=== PATIENT | female | born 1955 | race Caucasian/White ===

== ENCOUNTER → 2019-03-25 | Outpatient (CLI) | payer MEDICARE, BC ==
[~2019-03-25] MED LIST: AMOXICILLIN875 MG PO; ARTHROTEC EC 71 EACH; ASMANEX220 MCG; CALCIUM 600 +1 EAC8; CITALOPRAM HBR40 MG; COLACE100 M1; COQ10 SG 100 S1 EACH; CYMBALTA30 MG; ESTRACE42.5 GM; FLEX-A-MIN; METRONIDAZOLE59 ML; NEURONTIN300 MG; PANTOPRAZOLE SO40 MG PO; SPIRIVA18 MCG; TRAZODONE HCL50 MG; VITAMIN B COMP1 EAC1; VITAMIN D3400 UNI1; VYVANSE50 MG; WOMEN'S 50+ DA1 EACH
--- NOTE | 2019-03-25 11:53 | Diagnostic Imaging Report ---
TECHNIQUE: Magnetic resonance imaging of the LEFT KNEE was performed WITHOUT injected contrast. HISTORY: TEAR OF LATERAL MEDIAL MENISCUS , lateral and medial pain, fall 1990, pain when walking, within the, surgery 1990 "scrape bone fragments" COMPARISON: None available. FINDINGS: LIGAMENTS AND TENDONS: ACL: Intact PCL: Intact Collateral ligaments: Intact Iliotibial band: Unremarkable Popliteal tendon: Intact Extensor mechanism: Intact JOINT: Menisci: Medial: Intrasubstance degeneration of the posterior horn, without a discrete surfacing tear. Lateral: Contour irregularity and marked attenuation of the posterior root. Mild free margin attenuation and fraying of the body with peripheral extrusion of the remaining body. Articular Cartilage: Medial Compartment: Intermediate grade erosion of the weightbearing cartilage. Lateral Compartment: Low-grade erosion of the weightbearing cartilage with central full-thickness fissuring at the lateral tibial plateau. Patellofemoral Compartment: Diffuse high-grade to full-thickness patellar erosions, most notably the lateral facet. Full-thickness erosions of the lateral trochlea. Joint Fluid: The amount of fluid within the joint is within physiologic limits. A multilobulated and multiloculated Rebolledo's cyst, in greatest dimensions measuring up to 2.6 cm (AP) x 2.3 cm (ML) x 7.8 cm (CC). BONES: No focal or infiltrative bone marrow replacing abnormality. No acute fracture. SOFT TISSUES: Edema within the adipose tissue interposed between the proximal patellar tendon lateral femoral condyle. IMPRESSION: 1. 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 2. Postsurgical changes versus degenerative tearing of the lateral meniscus. 3. Findings which can be seen in the setting of patellar tendon lateral femoral condyle friction syndrome. 4. Rebolledo's cyst. Signed by: Dr. Yobany Nunez D.O., M.M.M. on 03/25/2019 11:50 AM
== END ==
LOC: MRI 10:16
PROVIDERS: ATTEND Specialist
DX: S83.262A Peripheral tear of lateral meniscus, current injury, left knee, initial encounter (principal); S83.222A Peripheral tear of medial meniscus, current injury, left knee, initial encounter

== ENCOUNTER → 2019-07-01 | Day surgery (SDC) | payer MEDICARE, BC ==
[2019-06-29 12:54] LABS: BASOPHILS % 0.2 % (0.0-1.0); HEMOGLOBIN 12.2 g/dL (12.0-16.0); LYMPHOCYTES # (AUTO) 2.5 (1.0-3.2); LYMPHOCYTES % 29.5 % (18.0-39.1); MEAN CORPUSCULAR HEMOGLOBIN 30.6 pg (28-32); MEAN CORPUSCULAR HGB CONC 32.1 g/dL (31-35); MEAN CORPUSCULAR VOLUME 95.2 fL (81-99); MONOCYTES # (AUTO) 0.8 (0.2-0.8); MONOCYTES % 8.8 % (4.4-11.3); NEUTROPHILS # (AUTO) 5.2 (2.1-6.9); NEUTROPHILS % 60.7 % (38.7-80.0); PLATELET COUNT 219 x10e3/uL (140-360); RED BLOOD COUNT 3.99 x10e6/uL (3.6-5.1); RED CELL DISTRIBUTION WIDTH 14.5 % (11.7-14.4)
--- NOTE | 2019-06-29 13:14 | Diagnostic Imaging Report ---
EXAMINATION: CHEST 2 VIEWS INDICATION: Pre-operative COMPARISON: None FINDINGS: LINES/TUBES:None LUNGS:The lungs are well-inflated. No focal consolidation or pulmonary edema. PLEURA:No pleural effusion or pneumothorax. MEDIASTINUM:The cardiomediastinal silhouette appears normal in size and shape. BONES/SOFT TISSUES:No acute osseous injury. ABDOMEN:No free air under the diaphragm. IMPRESSION: No focal pneumonia or pulmonary edema. Signed by: Mary Villegas MD on 06/29/2019 1:11 PM
[~2019-07-01] MED LIST changes: +ATORVASTATIN CA20 MG PO; +AUGMENTIN 875-1 EACH PO; +BUPIVACAINE 0.5%/EPI 30 ML SDV INJ ONE; +CEFAZOLIN SOD 1 GM/NS 50ML 100 ML IV ONE; +CLONIDINE HCL0.1 M1 PO; +COMBIVENT RESPIM4 GM IH; +DEXAMETHASONE SOD PHOS INJ 4 MG/ML VIAL ONE; +DYMISTA NASAL S23 GM INH; +FAMOTIDINE40 MG PEG; +FASENRA30 MG/1 ML SC; +FENTANYL CITRATE/PF 100MCG/2 ML INJ ONE; +IPRATROPIU0.2 MG/1 M NEB; +KETOROLAC TROMETHAMINE 30 MG/ML VIAL ONE; +LIDOCAINE HCL 2% LOCAL INJ 5 ML SDV VIAL INJ ONE; +LOSARTAN POTASS25 MG PO; +MIDAZOLAM HCL 2 MG/2 ML VIAL ONE; +MONTELUKAST SOD10 MG PO; +ONDANSETRON HCL INJ 2MG/ML 2ML 2 MG/ML VIAL ONE; +PROAIR HFA INH8.5 GM INH; +PROPOFOL IV EMULSION 10 MG/ML 20 ML VIAL ONE; +SEVOFLURANE INHAL SOLN 250 ML PEN BTL ONE; +SYMBICORT 16010.2 GM INH
[2019-07-01 10:20] VITALS: BP 123/74
--- NOTE | 2019-07-02 23:41 | Operative Report ---
DATE OF PROCEDURE: 07/01/2019 SURGEON: Neel Muiñz MD PREOPERATIVE DIAGNOSES: Left lateral meniscus tear and left knee degenerative joint disease of the knee. POSTOPERATIVE DIAGNOSES: Left lateral meniscus tear and left knee degenerative joint disease of the knee. OPERATIONS AND PROCEDURES PERFORMED: The patient underwent a left knee examination under anesthesia, left knee arthroscopy, left knee partial lateral meniscectomy, left knee chondroplasty of the patella, the trochlear groove, the medial femoral condyle, the medial tubercular groove, the lateral femoral condyle and lateral tibial plateau. SALES FLOOR MANAGER: SANDOR John ANESTHESIA: General endotracheal intubation anesthesia. IV FLUIDS: Per anesthesia record. BRIEF DESCRIPTION OF THE PATIENT'S OPERATIVE PROCEDURE: Ms. Mariano was taken to the operating room, placed in supine position on the operating table. Following induction of general anesthesia as well as endotracheal intubation, the patient's left lower extremity was examined under anesthesia. She was found to have a mild effusion within the knee joint, but otherwise ligamentously stable knee. The patient's lower extremity was prepped and draped in standard surgical fashion. A two-port technique used to provide this patient's arthroscopic evaluation of the knee joint. Examination of suprapatellar pouch and medial and lateral gutters found no evidence of loose bodies. There was however evidence of chondromalacia of the patella and trochlear surfaces. The scope was advanced in the medial compartment. Examination of the medial compartment demonstrated chondromalacia of the articulating surfaces. There was no evidence of a meniscus tear. A chondroplasty of the medial femoral condyle and medial tibial plateau were performed at this time. The scope was advanced to the intercondylar notch and the anterior cruciate ligament was identified and found to be intact. Scope was advanced to lateral compartment. Examination of lateral compartment demonstrated a tear of the posterior horn of the lateral meniscus. There was chondromalacia of the articulating surfaces. A combination of biting forceps and motorized shaver used to resect the torn portion of meniscus. Chondroplasties of the lateral femoral condyle and lateral tibial plateau were performed at this time. Scope was then advanced in the suprapatellar pouch and chondroplasties of the patella and trochlea performed. The knee was deflated with sterile normal saline. The portal sites were closed using 4-0 nylon suture. The portal sites as well as knee itself were injected with 0.5% Marcaine with epinephrine. Sterile dressings were applied. The patient was awakened to the postanesthesia care unit in stable condition. Ely Dacosta acted as first front ventilator for this case and was necessary for both prepping and draping the patient, as well as the position of the leg during surgery and the closure of the wounds to allow this case to be successful. MD ASPEN Sifuentes/FREDDY /[id number]
== END | disposition home or self-care (01) ==
LOC: OR 05:54
PROVIDERS: ATTEND Specialist
DX: S83.262A Peripheral tear of lateral meniscus, current injury, left knee, initial encounter (principal); M17.12 Unilateral primary osteoarthritis, left knee; M22.42 Chondromalacia patellae, left knee; G47.33 Obstructive sleep apnea (adult) (pediatric); J44.9 Chronic obstructive pulmonary disease, unspecified; I10 Essential (primary) hypertension; E78.5 Hyperlipidemia, unspecified; K21.9 Gastro-esophageal reflux disease without esophagitis; F41.9 Anxiety disorder, unspecified; F32.9 Major depressive disorder, single episode, unspecified; X58.XXXA Exposure to other specified factors, initial encounter; Z68.35 Body mass index [BMI] 35.0-35.9, adult; Z82.61 Family history of arthritis
CPT/HCPCS: 29881; 36415; 71046; 85025; 93005; J0690; J1100; J1885; J2001; J2250; J2405; J2704; J3010

== ENCOUNTER 2019-08-14 07:58 | Outpatient (RCR) | payer MEDICARE, BC ==
[~2019-08-14 07:58] MED LIST changes: -BUPIVACAINE 0.5%/EPI 30 ML SDV INJ ONE; -CEFAZOLIN SOD 1 GM/NS 50ML 100 ML IV ONE; -DEXAMETHASONE SOD PHOS INJ 4 MG/ML VIAL ONE; -FENTANYL CITRATE/PF 100MCG/2 ML INJ ONE; -KETOROLAC TROMETHAMINE 30 MG/ML VIAL ONE; -LIDOCAINE HCL 2% LOCAL INJ 5 ML SDV VIAL INJ ONE; -MIDAZOLAM HCL 2 MG/2 ML VIAL ONE; -ONDANSETRON HCL INJ 2MG/ML 2ML 2 MG/ML VIAL ONE; -PROPOFOL IV EMULSION 10 MG/ML 20 ML VIAL ONE; -SEVOFLURANE INHAL SOLN 250 ML PEN BTL ONE
== END 2019-09-01 ==
LOC: PT 07:58
PROVIDERS: ATTEND Specialist
DX: S93.601A Unspecified sprain of right foot, initial encounter (principal); M62.81 Muscle weakness (generalized); M25.561 Pain in right knee; M25.571 Pain in right ankle and joints of right foot; R26.9 Unspecified abnormalities of gait and mobility

== ENCOUNTER 2019-10-30 23:01 | Observation (INO) | payer MEDICARE, BC, OTHER ==
[~2019-10-30] VITALS: Ht 172.7 cm; Wt 110.2 kg
[~2019-10-30 23:01] MED LIST changes: -BUPIVACAINE HCL 0.5% INJ 30 ML VIAL INJ ONE; -CEFAZOLIN SOD 1 GM/NS 50ML 100 ML IV ONE; -CYCLOBENZAPRINE10 MG PO; -DEXAMETHASONE SOD PHOS INJ 4 MG/ML VIAL ONE; -ETOMIDATE 2 MG/ML 10 ML INJ IV ONE; -FENTANYL CITRATE/PF 100MCG/2 ML INJ ONE; -HYDROCODONE/APAP 5MG-325MG TAB ONE; -HYDROMORPHONE 1MG/1ML INJ ONE; -Ibuprofen PO; -KETOROLAC TROMETHAMINE 30 MG/ML VIAL ONE; -LABETALOL HCL 20 ML ONE; -LIDOCAINE HCL 2% LOCAL INJ 5 ML SDV VIAL INJ ONE; -NEOSTIGMINE 1 MG/ML 10ML VIAL ONE; -ONDANSETRON HCL INJ 2MG/ML 2ML 2 MG/ML VIAL ONE; -SEVOFLURANE INHAL SOLN 250 ML PEN BTL ONE
--- OUTSIDE RECORDS SUMMARY | 2019-10-30 23:05 | XMS REPORT | Clinical Summary ---
Author Author [facility] Organization [facility] Address Unknown Phone Unavailable Care Team Providers Care Policyholder Information Clerk Name Role Phone Tenisha Anders MD PCP Allergies Comments Active Allergy Reactions Severity Noted Date No Known Drug Allergies 03/23/2016 Medications End Date Status Medication Sig Dispensed Refills Start Date Active BACILLUS COAGULANS Probiotic 0 (PROBIOTIC, B. COAGULANS, ORAL) Active omega 2-xjv-lvw-fish oil Take by oral 0 183.3 mg-75 mg -91.6 route. mg-306 mg capsule Active ipratropium (ATROVENT) ipratropium 0 0.06 % nasal spray bromide 0.06 % nasal spray Active gabapentin (NEURONTIN) 4-10 capsules 0 300 MG capsule daily prn Active docusate sodium (COLACE) Take 1 0 100 MG capsule capsule every day by oral route. Active cranberry extract 200 mg Ellura 200 mg 0 capsule capsule (36 mg PAC) capsule Active coenzyme Q10 100 mg CoQ-10 100 mg 0 capsule capsule Active calcium carbonate-vitamin Calcium 600 + 0 D3 (CALCIUM 600 + D,3,) D(3) 600 mg(1,500mg) -200 unit per tablet Active vit B mcqp-N-UJ-iron-vit Vitamins B 0 E (VITAMINS B COMPLEX) Complex 500 mg-400 mcg- 18 mg iron tablet Active ibuprofen (ADVIL,MOTRIN) TK 1 T PO QID 0 02/02 600 MG tablet 6 Active budesonide-formoterol Inhale 2 0 (SYMBICORT) 160-4.5 puffs 2 (two) mcg/actuation inhaler times a day. Active azelastine-fluticasone 1 spray by 0 (DYMISTA) 137-50 Each Nare mcg/spray route 2 (two) spray,non-aerosol times a day. Active sodium chloride USE BID WITH 0 (HYPER-LEYDI) 7 % solution ALBUTEROL 6 for nebulization CONC. IN NEBULIZER Active citalopram (CeleXA) 40 MG TK 1 T PO 30 tablet 3 tabletIndications: Other ONCE D 6 depression Active DULoxetine (CYMBALTA) 30 TK ONE C PO 30 capsule 3 1 MG capsuleIndications: QAM 6 Other depression Active clonIDINE (CATAPRES) 0.1 Take 0.1 mg 0 MG tablet by mouth nightly. Active albuterol sulfate (PROAIR Inhale 180 0 RESPICLICK) 90 mcg every 4 mcg/actuation aerosol (four) hours. powdr breath activated Active albuterol (ACCUNEB) 2.5 U 1 VIAL IN 12 mg /3 mL (0.083 %) NEB BID PRF 7 nebulizer solution SOB Active atorvastatin (LIPITOR) 20 TAKE 1 TABLET 90 tablet 4 MG tabletIndications: DAILY 9 Mixed hyperlipidemia Active diclofenac-misoprostol TAKE 1 TABLET 180 tablet 4 1 (ARTHROTEC 75) 75-200 TWICE A DAY 9 mg-mcg EC tabletIndications: Primary osteoarthritis involving multiple joints Active pantoprazole (PROTONIX) TAKE 1 TABLET 90 tablet 4 40 MG EC tablet DAILY 9 Active famotidine (PEPCID) 40 MG Daily 0 tablet Active tiotropium bromide Inhale. 0 (SPIRIVA RESPIMAT INHL) Active losartan (COZAAR) 50 MG TAKE 1 TABLET 90 tablet 3 tablet BY MOUTH 0 EVERY DAY 07/29/2019 Discontinued ranitidine (ZANTAC) 300 ranitidine 0 MG tablet 300 mg tablet 04/08/2019 Discontinued ygqkd-q-[id number] Take by oral 0 (BEANO) 150 unit tablet route. 07/29/2019 Discontinued tiotropium (SPIRIVA WITH Spiriva with 0 HANDIHALER) 18 mcg per HandiHaler 18 inhalation capsule mcg and inhalation capsules 04/08/2019 Discontinued fluticasone (CUTIVATE) REILLY TO FACE 2 01 0.05 % cream FOR SEBORRHEA 7 QD TO BID 07/29/2019 Discontinued montelukast (SINGULAIR) TK 1 T PO QD 12 10 mg tablet HS 8 04/08/2019 Discontinued acetylcysteine (NAC) 600 Take 600 mg 0 mg capsule by mouth daily. 10/12/2019 Discontinued losartan (COZAAR) 50 MG Take 1 tablet 90 tablet 3 tablet (50 mg total) 8 by mouth daily. 03/12/2019 Discontinued (Reorder) atorvastatin (LIPITOR) 20 TAKE 1 TABLET 90 tablet 3 MG tabletIndications: DAILY 8 Mixed hyperlipidemia 03/18/2019 Discontinued (Reorder) diclofenac-misoprostol TAKE 1 TABLET 180 tablet 3 1 (ARTHROTEC 75) 75-200 TWICE A DAY 8 mg-mcg EC tabletIndications: Primary osteoarthritis involving multiple joints 11/12/2018 Discontinued (Reorder) pantoprazole (PROTONIX) Take 1 tablet 90 tablet 1 40 MG EC tablet (40 mg total) 8 by mouth daily for 90 days. 11/23/2018 Discontinued (Reorder) losartan (COZAAR) 50 MG TAKE 1 90 tablet 0 tabletIndications: TABLET(50 MG) 9 Essential hypertension BY MOUTH DAILY 04/30/2019 Discontinued (Reorder) pantoprazole (PROTONIX) TAKE 1 TABLET 90 tablet 1 40 MG EC tablet DAILY 9 02/17/2019 Discontinued (Reorder) losartan (COZAAR) 50 MG TAKE 1 90 tablet 0 tabletIndications: TABLET(50 MG) 9 Essential hypertension BY MOUTH DAILY 04/08/2019 Discontinued losartan (COZAAR) 50 MG TAKE 1 TABLET 90 tablet 0 tabletIndications: BY MOUTH ONCE 9 Essential hypertension DAILY 07/29/2019 Discontinued predniSONE (DELTASONE) 20 TK 2 TS PO D 0 03/04/201 mg tablet FOR 3 DAYS 9 07/14/2019 Discontinued losartan (COZAAR) 50 MG TAKE 1 TABLET 90 tablet 0 tabletIndications: BY MOUTH ONCE 9 Essential hypertension DAILY 07/29/2019 Discontinued losartan (COZAAR) 50 MG TAKE 1 TABLET 90 tablet 0 tabletIndications: BY MOUTH ONCE 0 Essential hypertension DAILY 09/25/2019 amoxicillin-pot Take 1 tablet 14 tablet 0 09/18/19 2 clavulanate (Augmentin) by mouth 2 0 875-125 mg per (two) times a tabletIndications: COPD day for 7 exacerbation (HCC) days. Active Problems Problem Noted Date Atrophic vaginitis 04/08/2019 Anxiety 04/20/2016 Asthma 04/20/2016 Depressive disorder 04/20/2016 Gastroesophageal reflux disease 04/20/2016 Hyperlipidemia 04/20/2016 Seborrheic eczema 03/23/2016 Menopausal and postmenopausal disorder 03/23/2016 Ingrown toenail 03/23/2016 Hypertension 03/23/2016 Hyperlipidemia 03/23/2016 Gastroesophageal reflux disease 03/23/2016 Elevated blood pressure 03/23/2016 Abnormal blood chemistry level 03/23/2016 Depression 03/23/2016 Attention deficit hyperactivity disorder (ADHD) 03/04 Primary osteoarthritis involving multiple joints Mild intermittent asthma without complication 2015 Encounters Care Team Description Date Type Specialty Tenisha Anders MD 10/29/2019 Telephone Access Tenisha Anders MD Preop examination (Primary Dx) 10/21/2019 Office Visit Internal Medicine 10/21/2019 Travel Tenisha Anders MD 10/12/2019 Refill Internal Medicine Thomas Duke MD COPD exacerbation (HCC) (Primary Dx) 09/28/2019 Telemedicine Family Medicine Imtiaz Taylor MD 09/25/2019 Telephone Lab Thomas Duke MD Chronic obstructive pulmonary disease wi th (acute) exacerbation (HCC) (Primary Dx); Other general symptoms and signs 09/18/2019 Lab Lab Thomas Duke MD COPD exacerbation (HCC) (Primary Dx); Suspected Covid-19 Virus Infection 09/18/2019 Telemedicine Family Medicine 09/17/2019 Travel Tenisha Anders MD Fever, unspecified fever cause (Primary Dx) 08/06/2019 Office Visit Internal Medicine Lorie Wilde MA 08/05/2019 Telephone Internal Medicine Tenisha Anders MD Fever, unspecified (Primary Dx) 07/29/2019 Lab Lab Tenisha Anders MD Fever, unspecified fever cause 07/29/2019 Office Visit Internal Medicine Tenisha Anders MD Fever, unspecified fever cause 07/29/2019 Hospital Radiology Encounter Tenisha Anders MD Essential hypertension 07/14/2019 Refill Internal Medicine Lorie Wilde MA Encounter for screening mammogram for br east cancer 06/18/2019 Orders Only Internal Medicine Tenisha Anders MD Essential hypertension 05/14/2019 Refill Internal Medicine Tenisha Anders MD 04/30/2019 Refill Internal Medicine Aracely Boone MD Solitary pulmonary nodule 04/10/2019 Hospital Radiology Encounter Tenisha Anders MD Encounter for routine adult physical exa m with abnormal findings; Encounter for screening mammogram for breast cancer; Osteopenia, unspecified location 04/08/2019 Office Visit Internal Medicine Aracely Boone MD Solitary pulmonary nodule (Primary Dx) 04/04/2019 Transcribe Access Orders Tenisha Anders MD Primary osteoarthritis involving multipl e joints 03/18/2019 Refill Internal Medicine Tenisha Anders MD Mixed hyperlipidemia 03/12/2019 Refill Internal Medicine Tenisha Anders MD Essential hypertension 02/17/2019 Refill Internal Medicine Tenisha Anders MD Essential hypertension 11/23/2018 Refill Internal Medicine Tenisha Anders MD 11/12/2018 Refill Family Medicine after 10/29/2018 Immunizations Name Administration Dates Next Due FLUZONE HIGH-DOSE PF 04/08/2019 FLUZONE QUAD PF 04/08/2018, 03/27/2017, Influenza (IM) 03/24/2014 Preservative Free Influenza Trivalent 03/17/2015, 02/27/2013 Influenza, Unspecified 03/03/2017, 03/03/2016 Pneumococcal Conjugate 03/03/2015 13-Valent Pneumococcal 02/27/2013 Polysaccharide Family History Medical History Relation Name Comments Colon cancer Brother Colon cancer Father Colon cancer Sister Relation Name Status Comments Brother Father Sister Social History Date Tobacco Use Types Packs/Day Years Used Never Smoker Smokeless Tobacco: Never Used Drinks/Week oz/Week Comments Alcohol Use No Sex Assigned at Date Recorded Female 09/18/2019 8:59 AM CDT Industry Job Start Date Occupation Not on file Not on file Not on file Travel End Travel History Travel Start No recent travel history available. Date Recorded COVID-19 Exposure Response 10/21/2019 10:00 AM CDT In the last month, have you been in contact with No / Unsure someone who was confirmed or suspected to have Coronavirus / COVID-19? Last Filed Vital Signs Reading Time Taken Comments Vital Sign 133/84 10/21/2019 10:08 AM CDT Blood Pressure 72 10/21/2019 10:08 AM CDT Pulse 36.8 C (98.3 F) 10/21/2019 10:08 AM CDT Temperature - - Respiratory Rate 97% 10/21/2019 10:08 AM CDT Oxygen Saturation - - Inhaled Oxygen Concentration 109 kg (240 lb) 10/21/2019 10:08 AM CDT Weight 172.7 cm (5' 8") 10/21/2019 10:08 AM CDT Height 36.49 10/21/2019 10:08 AM CDT Body Mass Index Plan of Treatment Care Team Description Date Type Specialty Visus, Tenisha Camarillo MD [address] [place] [address] 04/11/2020 Office Visit Internal Medicine Health Maintenance Due Date Last Done Comments 65+ PNEUMOCOCCAL VACCINE 2018 03/17/2015, (2 of 2 - PPSV23) 03/03/2015, 02/27/2013 INFLUENZA VACCINE 01/02/2020 04/08/2019, 04/08/2018, 03/27/2017, Additional history exists SHINGLES VACCINES (#1) 04/08/2020 Postponed from 2003 (Insurance / Financial) BREAST CANCER SCREENING 06/18/2021 06/18/2019, 04/08/2019, 05/07/2016 COLONOSCOPY SCREENING 05/15/2025 05/15/2015 Procedures Comments Procedure Name Priority Date/Time Associated Diag nosis ECG 12-LEAD Routine 10/21/2019 Preop examinati on 10:11 AM CDT COVID BIOREF (NCOVB) Routine 09/18/2019 Chronic o bstructive 1:33 PM CDT pulmonary disease with (acute) exacerbation (HCC) Other general symptoms and signs HC COMPLETE BLD COUNT Routine 07/29/2019 Fever, u nspecified W/AUTO DIFF 2:50 PM [employer] [employer] RESPIRATORY PATHOGEN Routine 07/29/2019 Fever, un specified PANEL 2:50 PM [employer] XR CHEST 2 VW Routine 07/29/2019 Fever, unspecif ied fever 2:14 PM [employer] cause POCT INFLUENZA A/B Routine 07/29/2019 Fever, unsp ecified fever 1:05 PM [employer] cause CT CHEST WO CONTRAST Routine 04/10/2019 Solitary pulmonary nodule 12:14 PM [employer] [employer] THYROID STIMULATING Routine 04/08/2019 Encounter for routine HORMONE 10:06 AM [employer] adult physical exam with abnormal findings LIPID PANEL Routine 04/08/2019 Encounter for r outine 10:06 AM [employer] adult physical exam with abnormal findings COMPREHENSIVE METABOLIC Routine 04/08/[address] for routine PANEL 10:06 AM [employer] adult physical exam with abnormal findings CBC WITH PLATELET AND Routine 04/08/2019 Encounte r for routine DIFFERENTIAL 10:06 AM [employer] adult physical exam with abnormal findings after 10/29/2018 Results * ECG 12 lead (10/21/2019 10:11 AM CDT) Ventricular 70 [facility] rate Atrial rate 70 [facility] LA interval 166 [facility] QRSD interval 78 [facility] QT interval 408 [facility] QTC interval 440 [facility] P axis 1 70 [facility] QRS axis 1 67 [facility] T wave axis 57 [facility] EKG impression Normal sinus rhythm-Normal [facility] ECG-No previous ECGs available- Specimen Narrative Performed At This result has an attachment that is n ot available. Performing Organization Address City/State/[facility] Ph one Number [facility] [address] [place] [address] * COVID BioRef (NCOVB) (09/18/2019 1:33 PM CDT) Pathologist [facility] COVID BioRef Not Detected Not Detected Continuity Control (NCOVB) Comment: LAB Source Nasopharyngeal Swab Testing performed at [facility] [address] [place] [id number] NOTE: Please consider re-collection of a new specimen, if clinically indicated. NOTE: The COVID-19 assay has been cleared by the U.S. Food and Drug Administration under the Emergency Use Authorization (EUA). [facility] is designated as a high complexity laboratory by the Clinical Laboratory Improvement Amendments of 1988(CLIA) and is qualified to perform this test. ASSAY INFORMATION: Real Time RT-PCR Specimen Serum Performing Organization Address City/[facility] Ph one Number [facility] DEPARTMENT OF [address] [place] [address] PATHOLOGY AND GENOMIC MEDICINE [facility] [address] [place], [place] [id number] * Respiratory pathogen panel (07/29/2019 2:50 PM MANAGER [employer]OO[employer]) Pathologist [facility] Respiratory Positive for Coronavirus HKU1 [place] pathogen panel [facility] Negative for all other HOSPITAL pathogens tested: Negative for Adenovirus Negative for Coronavirus NL63 Negative for Coronavirus 229E Negative for Coronavirus OC43 Negative for Human Metapneumovirus Negative for Rhinovirus/Enterovirus Negative for Influenza A Negative for Influenza A/H1 Negative for Influenza A/H3 Negative for Influenza A/H1-2009 Negative for Influenza B Negative for Parainfluenza Virus 1 Negative for Parainfluenza Virus 2 Negative for Parainfluenza Virus 3 Negative for Parainfluenza Virus 4 Negative for Respiratory Syncytial Virus Negative for Bordetella pertussis Negative for Chlamydophila pneumoniae Negative for Mycoplasma pneumoniae This real-time PCR assay detects the presence of nucleic acids (RNA or DNA) for the respiratory pathogens listed. A result of "Not-detected" does not exclude the possibility of the presence of one or more pathogens at concentrations less than the detectable limits of the assa (A) Comment: Specimen Information Specimen Source: Nares Specimen Site: Not specified Specimen Nares - Not specified Performing Organization Address [facility] Ph one Number [facility] DEPARTMENT OF [address] [place] [address] PATHOLOGY AND GENOMIC MEDICINE [address] * CBC with platelet and differential (07/29/2019 2:50 PM [employer] [employer]) Only the most recent of 2 results within the time period is included. [facility] WBC 13.32 (H) 4.50 - 11.00 k/uL [facility] RBC 3.82 (L) 4.20 - 5.50 m/uL [facility] HGB 11.6 (L) 12.0 - 16.0 g/dL [facility] HCT 36.4 (L) 37.0 - 47.0 % [facility] MCV 95.3 82.0 - 100.0 fL [facility] MCH 30.4 27.0 - 34.0 pg [facility] MCHC 31.9 31.0 - 37.0 g/dL [facility] RDW - SD 50.5 37.0 - 55.0 fL [facility] MPV 11.7 8.8 - 13.2 fL [facility] Platelet count 193 150 - 400 k/uL [facility] Nucleated RBC 0.00 /100 WBC [facility] Neutrophils 72.3 (H) 39.0 - 69.0 % [facility] Lymphocytes 14.8 (L) 25.0 - 45.0 % [facility] Monocytes 12.2 (H) 0.0 - 10.0 % [facility] Eosinophils 0.0 0.0 - 5.0 % [facility] Basophils 0.1 0.0 - 1.0 % [facility] Specimen Blood Performing Organization Address City/State/[facility] Ph one Number [facility] [place] [address] [place], [place] [address] PATHOLOGY AND GENOMIC MEDICINE [facility] [address] [place] [address] [facility] * XR Chest 2 Vw (07/29/2019 2:14 PM [employer]) Specimen Narrative Performed At EXAMINATION: XR CHEST 2 VW [facility] CLINICAL HISTORY: R50.9 Fever unspe cified, Acute resp illness > 40 years old, copd fevers and cough COMPARISON: 07/10/2017 chest radiograph s. IMPRESSION: Stable prominence of the central airway s seen on the lateral view, compatible with history of asthma. Minimal subsegm ental atelectasis in the bases. No new focal airspace consolidation, peribronc hial cuffing or pulmonary edema. No pleural effusion or pneumothorax. Cardiomediastinal silhouette is normal. No acute osseous abnormality. Mild spon dylosis with bridging osteophytosis. Upper abdominal structures are unremark able. [facility]-[id number] Dictated and approved by radiology resi dent/fellow: Fuentes Hall M.D. I, Michael Yoo, personally reviewed the images and resident's/fellow's findings and agree with the final report. Procedure Note Interface, Radiology Results Incoming - 07/29/2019 4:00 PM [employer] [employer] EXAMINATION: XR CHEST 2 VW CLINICAL HISTORY: R50.9 Fever unspecified, Acute resp illness > 40 years old, copd fevers and cough COMPARISON: 07/10/2017 chest radiographs. IMPRESSION: Stable prominence of the central airways seen on the lateral view, compatible with history of asthma. Minimal subsegmental atelectasis in the bases. No new focal airspace consolidation, peribronchial cuffing or pulmonary edema. No pleural effusion or pneumothorax. Cardiomediastinal silhouette is normal. No acute osseous abnormality. Mild spondylosis with bridging osteophytosis. Upper abdominal structures are unremarkable. [facility]-[id number] Dictated and approved by residential direct support professional/fellow: Fuentes Hall M.D. I, Michael Yoo, personally reviewed the images and resident's/fellow's findings and agree with the final report. Performing Organization Address City/State/Zipcode Ph one Number [facility] [address] [place] [address] * POC Influenza A/B (07/29/2019 1:05 PM [employer]) Rapid Influenza Negative A Ag Rapid Influenza Negative B Ag Specimen Nasopharyngeal * CT Chest Wo Contrast (04/10/2019 12:14 PM [employer]) Specimen Narrative Performed At Study:CT CHEST WO CONTRAST [facility] History: R91.1 Solitary pulmonary nodul e, NODULE COMPARISON: April 17, 2018 TECHNIQUE: Multiple axial CT images of the chest performed Without IV contrast.. Coronal and sagittal reconstructions we re done. CT imaging was performed with iterative reconstruction technique and/or automated exposure control to reduce ra diation dose. FINDINGS: LUNGS: There is no focal consolidation, pleural effusion, or pneumothorax. Groundglass scarring or atelectasis in the lung bases. Left lower lobe pulmonary nodule measuring 3 mm stable in image 8 0 series 3. A lobulated pulmonary nodule in the left lower lobe measuring 7 mm in image 87 series 3 also stable. No suspicious pulmonary nodules. No pulmonary mass. AIRWAYS: No central endobronchial or en dotracheal lesions are seen. MEDIASTINUM: The thoracic aorta is with out aneurysm. Cardiac mildly enlarged. Stable trace pericardial effusion. No e nlarged mediastinal or hilar lymph nodes present. The esophagus is unremarkable. BONES AND OVERLYING SOFT TISSUES: The v isualized bones are without destructive lesions. No enlarged axillary lymph nod es present. VISUALIZED LOWER NECK AND UPPER ABDOMEN :Unremarkable. IMPRESSION: Stable left lower lobe pulmonary nodule s. Follow-up CT chest in one year recommended for 2 year stability evalua tion. [facility] [id number] Procedure Note Hm Interface, Radiology Results Incoming - 04/10/2019 12:35 PM [employer] [employer] Study:CT CHEST WO CONTRAST History: R91.1 Solitary pulmonary nodule, NODULE COMPARISON: April 17, 2018 TECHNIQUE: Multiple axial CT images of the chest performed Without IV contrast.. Coronal and sagittal reconstructions were done. CT imaging was performed with iterative reconstruction technique and/or automated exposure control to reduce radiation dose. FINDINGS: LUNGS: There is no focal consolidation, pleural effusion, or pneumothorax. Groundglass scarring or atelectasis in the lung bases. Left lower lobe pulmonary nodule measuring 3 mm stable in image 80 series 3. A lobulated pulmonary nodule in the left lower lobe measuring 7 mm in image 87 series 3 also stable. No suspicious pulmonary nodules. No pulmonary mass. AIRWAYS: No central endobronchial or endotracheal lesions are seen. MEDIASTINUM: The thoracic aorta is without aneurysm. Cardiac mildly enlarged. Stable trace pericardial effusion. No enlarged mediastinal or hilar lymph nodes present. The esophagus is unremarkable. BONES AND OVERLYING SOFT TISSUES: The visualized bones are without destructive lesions. No enlarged axillary lymph nodes present. VISUALIZED LOWER NECK AND UPPER ABDOMEN:Unremarkable. IMPRESSION: Stable left lower lobe pulmonary nodules. Follow-up CT chest in one year recommended for 2 year stability evaluation. [facility] [id number] Performing Organization Address City/State/[facility] Ph one Number [facility] [address] [place] [address] * Thyroid stimulating hormone (04/08/2019 10:06 AM MANAGER [employer]) TSH 1.64 0.40 - 4.50 mIU/L [employer] [facility] [place] Specimen Blood Narrative Performed At FASTING:YES [facility] FASTING: YES Resulting Agency Comment Performing Organization Information: Site ID: [id number] Name: [email or web address] Address: [address] [place] [id number] Director: Hermes Luna Performing Organization Address [facility] Ph one Number [facility] [place] [phone] * Lipid panel (04/08/2019 10:06 AM MANAGER [employer]) Pathologist [facility] Cholesterol, 167 <200 mg/dL [facility] [place] HDL cholesterol 57 >50 mg/dL [facility] [place] Triglycerides 136 <150 mg/dL [facility] [place] LDL cholesterol 87 mg/dL (calc) [facility] calculated Comment: DIAGNOSTICS Reference range: <100 [place] Desirable range <100 mg/dL for primary prevention; <70 mg/dL for patients with CHD or diabetic patients with > or = 2 CHD risk factors. LDL-C is now calculated using the Luana calculation, which is a validated novel method providing better accuracy than the Friedewald equation in the estimation of LDL-C. Garland HUDSON et al. EL. 2013;310(19): 0763-1907 (http://education.Zimplistic.Sandglaz/faq/KTM232) Cholesterol/HDL 2.9 <5.0 (calc) [facility] [place] Non-HDL 110 <130 mg/dL (calc) [facility] cholesterol Comment: DIAGNOSTICS For patients with diabetes [place] plus 1 major ASCVD risk factor, treating to a non-HDL-C goal of <100 mg/dL (LDL-C of <70 mg/dL) is considered a therapeutic option. Specimen Blood Narrative Performed At FASTING:YES [facility] FASTING: YES Resulting Agency Comment Performing Organization Information: Site ID: [id number] Name: [email or web address] Address: [address] [place] [id number] Director: Hermes Luna Performing Organization Address [facility] Ph one Number [facility] [place] [phone] * Comprehensive metabolic panel (04/08/2019 10:06 AM MANAGER [employer]OOKS) Pathologist [facility] Glucose 82 65 - 99 mg/dL [facility] Comment: DIAGNOSTICS Fasting [place] reference interval BUN 14 7 - 25 mg/dL [facility] [place] Creatinine 0.95 0.50 - 0.99 mg/dL [facility] Comment: DIAGNOSTICS For patients >49 years of age, [place] the reference limit for Creatinine is approximately 13% higher for people identified as -German. EGFR Non-Afr. 63 > OR = 60 [facility] German mL/min/1.73m2 [facility]AG[facility]STICS [place] EGFR 73 > OR = 60 [facility] [place] mL/min/1.73m2 [facility] [place] BUN/creatinine NOT APPLICABLE 6 - 22 (calc) [facility] [place] Sodium 142 135 - 146 mmol/L [facility] [place] Potassium 4.8 3.5 - 5.3 mmol/L [facility] [place] Chloride 108 98 - 110 mmol/L [facility] [place] CO2 25 20 - 32 mmol/L [facility] [place] Calcium 9.7 8.6 - 10.4 mg/dL [facility] [place] Protein 6.4 6.1 - 8.1 g/dL [facility] [place] Albumin, S 4.0 3.6 - 5.1 g/dL [facility] Globulin, total 2.4 1.9 - 3.7 g/dL [facility] Albumin/globuli 1.7 1.0 - 2.5 (calc) [facility] Total bilirubin 0.4 0.2 - 1.2 mg/dL [facility] Alkaline 71 33 - 130 U/L [facility] AST 19 10 - 35 U/L [facility] ALT 14 6 - 29 U/L [facility] Specimen Blood Narrative Performed At FASTING:YES [facility] FASTING: YES Resulting Agency Comment Performing Organization Information: Site ID: [email or web address] Name: [email or web address] Address: [address] [place] [id number] Director: Hermes Luna Performing Organization Address City/State/Zipcode Ph one Number [facility] [employer] [address] [phone] 10/29/2018 Insurance Type Payer Benefit Subscriber ID Effective Phone Address Plan / Dates Group Medicare MEDICARE MEDICARE xxxxxxxxxxx 2014-P SM[place], PART A AND resent [place] B Indemnity BCBS BCBS xxxxxxxxxxxxxxx 2016-P PAR/TRAD resent PLAN [id number] Advance Directives For more information, please contact: [phone] Patient Production Service Manager Explanation Type Date Recorded Advance Directives, Living Will and Medical Power of Sonogram Technician
--- OUTSIDE RECORDS SUMMARY | 2019-10-30 23:05 | XMS REPORT | Continuity of Care Document ---
Author Author [employer] Organization [employer] Address Unknown Phone Unavailable Care Team Providers Care Transcribing Machine Mechanic Name Role Phone [place] Information [employer] Unavailable Un available Problems Problem Status Onset Date Classification Date Reported Comments Source Exostosis Active Problem 05/11/2014 [facility] Ingrown toenail Active Problem 05/11/2014 [facility] Medications No Data Provided for This Section Allergies, Adverse Reactions, Alerts No Known Medication Allergies Immunizations No Data Provided for This Section Results No Data Provided for This Section Pathology Reports No Data Provided for This Section Diagnostic Reports No Data Provided for This Section Consultation Notes No Data Provided for This Section Discharge Summaries No Data Provided for This Section History and Physicals No Data Provided for This Section Vital Signs No Data Provided for This Section Encounters Location Location Details Encounter Type Encounter Number Reason For Visit Attending Provider ADM Date DC Date Status Source [facility] Unknown [id number] 02/03/20 14 02/02/2014 [facility] Procedures No Data Provided for This Section Assessment and Plan No Data Provided for This Section Plan of Care No Data Provided for This Section Social History Social History Date Source Social History ElementQualifiersDate Rep orted Do you smoke? . Answer: No Apr 20, 2014 Use of recreational / street drugs? . Answer: No Apr 20, 2014 Marital Status: . Apr 20, 2014 Do you exercise? . Answer: Yes Apr 20, 2014 Do you drink alcohol? . Status: No Apr 20, 2014 Occupation: . disabled Apr 20, 2014 04/20/2014 [facility] Family History Value Date S ource QualifierDescriptionCommentDate Reported Father heart disease, cancer, hypertension Apr 20, 2014 05/11/2014 [facility] Advance Directives No Data Provided for This Section Functional Status No Data Provided for This Section
--- OUTSIDE RECORDS SUMMARY | 2019-10-30 23:05 | XMS REPORT ---
Author Author Lesa Husain Organization [employer] Address Unknown Phone Unavailable Care Team Providers Care Farm Demonstrator Name Role Phone Eran Husain Unavailable Encounters Encounter Location Date Unknown [facility] Feb 02 14 Problems Problem Type Condition ICD-9 Code Onset Dates Condition Statu s Problem Exostosis 726.91 Active Problem Ingrown toenail 703.0 Active Social History Social History Element Qualifiers Date Reported Do you smoke? . Answer: No Apr 20, 2014 Use of recreational / street drugs? . Answer: No Apr 20, 2014 Marital Status: . Apr 20, 2014 Do you exercise? . Answer: Yes Apr 20, 2014 Do you drink alcohol? . Status: No Apr 20, 2014 Occupation: . disabled Apr 20, 2014 Family history Qualifier Description Comment Date Reported Father heart disease, cancer, hype rtension Apr 20, 2014 Summary Purpose [employer] Submission
--- OUTSIDE RECORDS SUMMARY | 2019-10-30 23:06 | XMS REPORT ---
Author Author [facility] t Organization [facility] Address [address] [place] [address] [address] [place] [address] Phone Unavailable Care Team Providers Care Java Core Developer Name Role Phone ARIC LOPEZ, Brandi ESPAÑA PCP Aric LOPEZ, Rabia España Attphys Srikanth LOPEZ, Thomas Attphys Brandon LOPEZ, Sean Kitchen Attphys [phone] Andry KELLY, Lorie Attphys Unavailable SUGAR GOLDSTEIN Attphys Unavailable Mely LOPEZ, Jose Jessica Attphys Payers Payer Name Policy Type Policy Number Effective Date Expiration Date S medina MEDICAREMEDICARE PART A AND Bxxxxxxxxxxx2013-PresentSTEVE RICKETTS NCMedicare xxxxxxxxxxx 2014 00:00:00 Harley Williamson BCBSBCBS PAR/TRAD PLANxxxxxxxxxxxxxxx2016-PresentIndemni ty xxxxxxxxxxxxxxx 2016 00:00:00 Harley Williamson [facility] [id number] 2016 00:00:00 [facility] Medicare A & B [id number] 2014 00:00:00 [facility] Problems Condition Name Condition Details Condition Category Status Onset Date Resolution Date Last Treatment Date Treating Clinician Comments Source Atrophic vaginitis Atrophic vaginitis Disease Active 2019-04-08 00:00:0 0 Harley Williamson Anxiety Anxiety Disease Active 2016-04-20 00:00:00 Harley Williamson Asthma Asthma Disease Active 2016-04-20 00:00:00 Harley Williamson Depressive disorder Depressive disorder Disease Active 2016-04-20 00:00 :00 Harley Williamson Gastroesophageal reflux disease Gastroesophageal reflux disease Dis ease Active 2016-04-20 00:00:00 Harley Williamson Hyperlipidemia Hyperlipidemia Disease Active 2016-04-20 00:00:00 Harley Williamson Seborrheic eczema Seborrheic eczema Disease Active 2016-03-23 00:00:00 Harley Williamson Menopausal and postmenopausal disorder Menopausal and postme nopausal disorder Disease Active 2016-03-23 00:00:00 Harley Williamson Ingrown toenail Ingrown toenail Disease Active 2016-03-23 00:00:00 Harley Williamson Hypertension Hypertension Disease Active 2016-03-23 00:00:00 Harley Williamson Hyperlipidemia Hyperlipidemia Disease Active 2016-03-23 00:00:00 Harley Williamson Gastroesophageal reflux disease Gastroesophageal reflux disease Dis ease Active 2016-03-23 00:00:00 Harley Williamson Elevated blood pressure Elevated blood pressure Disease Active 2016-03-23 00:00:[address] Abnormal blood chemistry level Abnormal blood chemistry level Disea se Active 2016-03-23 00:00:00 Harley Williamson Depression Depression Disease Active 2016-03-23 00:00:00 Harley Williamson Attention deficit hyperactivity disorder (ADHD) Attent ion deficit hyperactivity disorder (ADHD) Disease Active 2016-03-23 00:00:00 Harley Williamson Primary osteoarthritis involving multiple joints Prima ry osteoarthritis involving multiple joints Disease Active 2016-03-23 00:00:00 Harley Williamson Mild intermittent asthma without complication Mild int ermittent asthma without complication Disease Active 2016-03-23 00:00:00 Harley Williamson Exostosis Exos tosis Active Problem 05/11/2014 [facility] Problem Active 2014-05-11 03:50:13 [facility] Ingrown toenail Ingr own toenail Active Problem 05/11/2014 [facility] Problem Active 2014-05-11 03:50:13 [facility] Allergies, Adverse Reactions, Alerts This patient has no known allergies or adverse reactions. Family History Family Member Diagnosis Comments Start Date Stop Date Source Natural brother Colon cancer Harley Williamson Natural father Colon cancer Harley Williamson Natural sister Colon cancer Harley Williamson Social History Social Habit Start Date Stop Date Quantity Comments Source Sex Assigned At María phillips [facility] Exposure to SARS-CoV-2 (event) Not sure Harley Williamson Alcohol intake 2019-10-21 00:00:00 2019-10-21 00:00:00 Current non-drinker of alcohol (finding) Harley Williamson [place]? 2014-04-20 00:00:00 2014-04-20 00:00:00 [facility] Smoking Status Start Date Stop Date Source Never smoker Harley Matta t Medications Ordered Medication Name Filled Medication Name Start Date Stop Da te Current Medication? Ordering Clinician Indication Dosage Frequency Signature (SIG) Comments Components Source BACILLUS COAGULANS (PROBIOTIC, B. COAGULANS, ORAL) 2019-10 10:08:40 Yes Probiotic Harley Coburn thodi omega 1-txp-auw-fish oil 183.3 mg-75 mg -91.6 mg-306 mg caps ule 2019-10-21 10:08:40 Yes Take by oral route. Harley Williamson ipratropium (ATROVENT) 0.06 % nasal spray 2019-10-21 10:08:40 Yes ipratropium bromide 0.06 % nasal spray H angeles Williamson gabapentin (NEURONTIN) 300 MG capsule 2019-10-21 10:08:40 Y es 4-10 capsules daily prn Harley Williamson docusate sodium (COLACE) 100 MG capsule 2019-10-21 10:08:40 Yes Take 1 capsule every day by oral route. Arvind on [facility] cranberry extract 200 mg capsule capsule 2019-10-21 10:08:40 Yes Ellura 200 mg (36 mg PAC) capsule Cecile Williamson coenzyme Q10 100 mg capsule 2019-10-21 10:08:40 Yes CoQ-10 100 mg capsule Harley Williamson calcium carbonate-vitamin D3 (CALCIUM 60 0 + D,3,) 600 mg(1,500mg) -200 unit per tablet 2019-10-21 10:08:40 Yes Calcium 600 + D(3) Harley Williamson vit B ltyw-Y-DY-iron-vit E (VITAMINS B C OMPLEX) 500 mg-400 mcg- 18 mg iron tablet 2019-10-21 10:08:40 Yes Vitamins B Complex Harley Williamson budesonide-formoterol (SYMBICORT) 160-4.5 mcg/actuation inha ler 2019-10-21 10:08:40 Yes 2{puff} Q.5D Inhale 2 puffs 2 (two) times a day. Harley Williamson azelastine-fluticasone (DYMISTA) 137-50 mcg/spray spray,non- aerosol 2019-10-21 10:08:40 Yes 1{spray} Q.5D 1 spray by Each Nare route 2 (two) times a day. Harley Williamson clonIDINE (CATAPRES) 0.1 MG tablet 2019-10-21 10:08:40 Yes .1mg QD Take 0.1 mg by mouth nightly. Harley garcia albuterol sulfate (PROAIR RESPICLICK) 90 mcg/actuation aerosol powdr breath activated 2019-10-21 10:08:40 Yes 180ug Q4 H Inhale 180 mcg every 4 (four) hours. Harley Williamson famotidine (PEPCID) 40 MG tablet 2019-10-21 10:08:40 Yes Daily Harley Williamson tiotropium bromide (SPIRIVA RESPIMAT INHL) 2019-10-21 10:08:40 Yes Inhale. Harley Williamson losartan (COZAAR) 50 MG tablet 2019-10-12 00:00:00 Yes TAKE 1 TABLET BY MOUTH EVERY DAY Harley Williamson amoxicillin-pot clavulanate (Augmentin) 875-125 mg per table t 2019-09-18 00:00:00 2019-09-25 23:59:00 No COPD exacerbation (HCC) 1{tbl} Q.5D Take 1 tablet by mouth 2 (two) times a day for 7 days. Harley Williamson tiotropium (SPIRIVA WITH HANDIHALER) 18 mcg per inhalation c apsule 2019-07-29 13:54:07 2019-07-29 00:00:00 No Spiriva with HandiHaler 18 mcg and inhalation capsules Harley Williamson ranitidine (ZANTAC) 300 MG tablet 2019-07-29 12:56:58 2019 00:00:00 No ranitidine 300 mg tablet Harley Williamson losartan (COZAAR) 50 MG tablet 2019-07-14 00:00:00 2019-07-05 6 00:00:00 No Essential hypertension TAKE 1 TABLET BY MOUTH ONCE DAILY Harley Williamson losartan (COZAAR) 50 MG tablet 2019-05-14 00:00:00 2019-07-04 1 00:00:00 No Essential hypertension TAKE 1 TABLET BY MOUTH ONCE DAILY Harley Williamson pantoprazole (PROTONIX) 40 MG EC tablet 2019-05-05 00:00:00 Yes TAKE 1 TABLET DAILY Harley Williamson vibuv-t-fuydhdpscovtu (BEANO) 150 unit tablet 20 21-04-06 09:01:18 2019-04-08 00:00:00 No Take by oral route. Harley Williamson acetylcysteine (NAC) 600 mg capsule 2019-04-08 08:59:0 3 2019-04-08 00:00:00 No 600mg QD Take 600 mg by mouth daily. Harley Williamson predniSONE (DELTASONE) 20 mg tablet 2019-03-24 00:00:0 0 2019-07-29 00:00:00 No TK 2 TS PO D FOR 3 DAYS Harley Williamson diclofenac-misoprostol (ARTHROTEC 75) 75-200 mg-mcg EC table t 2019-03-18 00:00:00 Yes Primary osteoarthritis involving multipl e joints TAKE 1 TABLET TWICE A DAY Harley Williamson atorvastatin (LIPITOR) 20 MG tablet 2019-03-14 00:00:00 Yes Mixed hyperlipidemia TAKE 1 TABLET DAILY angeles Williamson losartan (COZAAR) 50 MG tablet 2019-02-18 00:00:00 6 00:00:00 No Essential hypertension TAKE 1 TABLET BY MOUTH ONCE DAILY Harley Williamson losartan (COZAAR) 50 MG tablet 2018-11-23 00:00:00 2019-02-01 7 00:00:00 No Essential hypertension TAKE 1 TABLET(50 MG) BY MOUTH DAILY Harley Williamson pantoprazole (PROTONIX) 40 MG EC tablet 00:00:00 2019-04-30 00:00:00 No TAKE 1 TABLET DAILY Harley Williamson losartan (COZAAR) 50 MG tablet 2018-10-12 00:00:00 2018-11-02 3 00:00:00 No Essential hypertension TAKE 1 TABLET(50 MG) BY MOUTH DAILY Harley Williamson pantoprazole (PROTONIX) 40 MG EC tablet 00:00:00 2018-11-12 00:00:00 No 40mg QD Take 1 tablet (40 mg total) by mouth daily for 90 days. Harley Williamson diclofenac-misoprostol (ARTHROTEC 75) 75-200 mg-mcg EC table t 2018-03-13 00:00:00 2019-03-18 00:00:00 No Primary oste oarthritis involving multiple joints TAKE 1 TABLET TWICE A DAY Harley Williamson atorvastatin (LIPITOR) 20 MG tablet 2018-03-13 00:00:0 0 2019-03-12 00:00:00 No Mixed hyperlipidemia TAKE 1 TABLET DAILY Harley Williamson losartan (COZAAR) 50 MG tablet 2017-06-27 00:00:00 2019-10-12 00 :00:00 No 50mg QD Take 1 tablet (50 mg total) by mouth daily. Harley Williamson montelukast (SINGULAIR) 10 mg tablet 2017-06-11 00:00: 00 2019-07-29 00:00:00 No TK 1 T PO QD HS Harley Williamson albuterol (ACCUNEB) 2.5 mg /3 mL (0.083 %) nebulizer solutio n 2017-05-31 00:00:00 Yes U 1 VIAL IN NEB BID PRF SOB Harley Williamson fluticasone (CUTIVATE) 0.05 % cream 2016-06-26 00:00:0 0 2019-04-08 00:00:00 No REILLY TO FACE FOR SEBORRHEA QD TO BID Harley Williamson citalopram (CeleXA) 40 MG tablet 2016-05-18 00:00:00 Yes Other depression TK 1 T PO ONCE D Harley peralta DULoxetine (CYMBALTA) 30 MG capsule 2016-05-18 00:00:00 Yes Other depression TK ONE C PO QAM Harley Williamson sodium chloride (HYPER-LEYDI) 7 % solution for nebulization 2016-05-08 00:00:00 Yes USE BID WITH ALBUTEROL CONC. IN NEBULIZER Harley Williamson ibuprofen (ADVIL,MOTRIN) 600 MG tablet 2016-02-03 00:00:00 Yes TK 1 T PO QID Harley Williamson Albuterol Sulfate (Proair Hfa Inhaler*) 8.5 Gm Inh Alb uterol Sulfate (Proair Hfa Inhaler*) 8.5 Gm Inh Yes [address] [facility] Amoxicillin/Potassium Clav (Augmentin 875-125 Tablet) 1 Each Tablet Amoxicillin/Potassium Clav (Augmentin 875-125 Tablet) 1 Each Tablet Yes [address] [facility] Atorvastatin Calcium 20 Mg Tablet Atorvastatin Calcium 20 Mg Tablet Yes [address] [facility] Azelastine/Fluticasone (Dymista Nasal Yale) 23 Gm Spr ay.pump Azelastine/Fluticasone (Dymista Nasal Yale) 23 Gm Yale.pump Ye s 1 Twice A Day [facility] Benralizumab (Fasenra) 30 Mg/1 Ml Syringe Benralizumab (Fasenra) 30 Mg/1 Ml Syringe Yes [facility] Budesonide/Formoterol Fumarate (Symbicor t 160-4.5 Mcg Inhaler) 10.2 Gm Hfa.aer.ad Budesonide/Formoterol Fumarate (Symbicor t 160-4.5 Mcg Inhaler) 10.2 Gm Hfa.aer.ad Yes 2 Daily [facility] Calcium Carb/Vit D3/Minerals (Calcium 600 + D Tablet) 1 Each Tablet Calcium Carb/Vit D3/Minerals (Calcium 600 + D Tablet) 1 Each Tablet Yes Twice A Day [facility] Cholecalciferol (Vitamin D3) (Vitamin D3) 400 Unit Tab .chew Cholecalciferol (Vitamin D3) (Vitamin D3) 400 Unit Tab.chew Yes Daily [facility] Citalopram Hydrobromide (Citalopram Hbr) 40 Mg Tablet Citalopram Hydrobromide (Citalopram Hbr) 40 Mg Tablet Yes Bedtime [facility] Clonidine Hcl (Clonidine Hcl Er) 0.1 Mg Tab.er.12h Alejandra nidine Hcl (Clonidine Hcl Er) 0.1 Mg Tab.er.12h Yes Bedtime [facility] Diclofenac Sodium/Misoprostol (Arthrotec Ec 75 Mg-200 Mcg Tab) 1 Each Tablet. Diclofenac Sodium/Misoprostol (Arthrotec Ec 75 Mg-200 Mcg Tab) 1 Each Tablet.dr Clifton Twice A Day [facility] Docusate Sodium (Colace) 100 Mg Capsule Docusate Sodium (Col jabari) 100 Mg Capsule Yes As Needed [facility] Duloxetine Hcl (Cymbalta) 30 Mg Capsule. Duloxetine Hcl (Cymbalta) 30 Mg Capsule. Yes Daily [facility] Estradiol (Estrace) 42.5 Gm Cr Estradiol (Estrace) 42.5 Gm Cr Yes 2XWK [facility] Famotidine 40 Mg Tablet Famotidine 40 Mg Tablet Yes [address] [facility] Gabapentin (Neurontin) 300 Mg Capsule Gabapentin (Neurontin) 300 Mg Capsule Yes 10DAILY [facility] Ipratropium [place] 0.2 Mg/1 Ml Solution Ipratropium B romide 0.2 Mg/1 Ml Solution Yes 2.5 Twice A Day [facility] Ipratropium/Albuterol Sulfate (Combivent Respimat Inha l [place]) 4 Gm Aer.w.adap Ipratropium/Albuterol Sulfate (Combivent Respimat Inhal [place]) 4 Gm Aer.w.adap Yes [address] [facility] Losartan Potassium 25 Mg Tablet Losartan Potassium 25 Mg Tablet Yes [address] [facility] Montelukast Sodium 10 Mg Tablet Montelukast Sodium 10 Mg Tablet Yes [address] [facility] Multivitamins-Min/Fa/Ginkgo (Women's 50+ Daily Formula Tab) 1 Each Tablet Multivitamins-Min/Fa/Ginkgo (Women's 50+ Daily Formula Tab) [address] Tablet Yes Daily [facility] Pantoprazole Sodium (Protonix) 40 Mg Tablet. Pantopr azole Sodium (Protonix) 40 Mg Tablet. Yes [address] [facility] Tiotropium [place] (Spiriva) 18 Mcg Cap.w.dev Tiotropi um [place] (Spiriva) 18 Mcg Cap.w.dev Yes Twice A Day [facility] Ubidecarenone/Vitamin E Mixed (Coq10 Sg 100 Softgel) 1 Each Capsule Ubidecarenone/Vitamin E Mixed (Coq10 Sg 100 Softgel) [address] Each Capsule Yes Daily [facility] Vitamin B Complex 1 Each Tablet Vitamin B Complex 1 Each Tablet Yes Daily [facility] Amoxicillin 875 Mg Tablet, 875 Mg Oral Amoxicillin 875 Mg Tablet , 875 Mg Oral 2019-06-12 00:00:00 No 875 Daily [facility] Flex-A-Min , Flex-A-Min , 2019-06-12 00:00:00 [address] A Day [facility] Lisdexamfetamine Dimesylate (Vyvanse) 50 Mg Capsule, L isdexamfetamine Dimesylate (Vyvanse) 50 Mg Capsule, 2019-06-12 00:00:00 No Daily [facility] Metronidazole 59 Ml Lotion, Metronidazole 59 Ml Lotion, 2019-06-12 00:00:00 No Twice A Day [facility] Mometasone Furoate (Asmanex) 220 Mcg Aer.pow.ba, Momet asone Furoate (Asmanex) 220 Mcg Aer.pow.ba, 2019-06-12 00:00:00 No Twic e A Day [facility] Trazodone Hcl 50 Mg Tablet, Trazodone Hcl 50 Mg Tablet, 2019-06-12 00:00:00 No 1/2-1HS [facility] Immunizations Ordered Immunization Name Filled Immunization Name Date Status Comments Source FLUZONE HIGH-DOSE PF 2019-04-08 00:00:00 Completed Harley Williamson FLUZONE QUAD PF 2018-04-08 00:00:00 Completed Harley Williamson FLUZONE QUAD PF 2017-03-27 00:00:00 Completed Harley Williamson Influenza, Unspecified 2017-03-03 00:00:00 Completed Harley Williamson FLUZONE QUAD PF 2016-03-23 00:00:00 Completed Harley Williamson Influenza, Unspecified 2016-03-03 00:00:00 Completed Harley Williamson Influenza Trivalent 2015-03-17 00:00:00 Completed Harley Williamson Pneumococcal Conjugate 13-Valent 2015-03-03 00:00:00 Compl eted Harley Williamson Influenza (IM) Preservative Free 2014-03-24 00:00:00 Compl eted Harley Williamson Influenza Trivalent 2013-02-27 00:00:00 Completed Harley Williamson Pneumococcal Polysaccharide 2013-02-27 00:00:00 Completed Harley Williamson Vital Signs Vital Name Observation Time Observation Value Comments Source Systolic blood pressure 2019-10-21 10:08:00 133 mm[Hg] [facility] Diastolic blood pressure 2019-10-21 10:08:00 84 mm[Hg] Harley Williamson Heart rate 2019-10-21 10:08:00 72 /min Harley Williamson Body temperature 2019-10-21 10:08:00 36.83 Mary [place] [facility] Body height 2019-10-21 10:08:00 172.7 cm Harley Williamson Body weight 2019-10-21 10:08:00 108.863 kg Harley Williamson BMI 2019-10-21 10:08:00 36.49 kg/m2 [facility] Oxygen saturation in Arterial blood by Pulse oximetry 10-20 10:08:00 97 /min [facility] Procedures Procedure Date / Time Performed Performing Clinician [facility] e ECG 12-LEAD 2019-10-21 10:11:05 Patria Corbett COVID BIOREF (NCOVB) 2019-09-18 13:33:00 Thomas Duke RESPIRATORY PATHOGEN PANEL 2019-07-29 14:50:00 Patria Corbett HC COMPLETE BLD COUNT W/AUTO DIFF 2019-07-29 14:50:00 Jaclyn Corbett XR CHEST 2 VW 2019-07-29 14:14:09 Patria Corbett POCT INFLUENZA A/B 2019-07-29 13:05:00 Patria Corbett [facility] KNEE ARTHROSCOPY/SURGERY 2019-07-01 00:00:00 SUGAR GOLDSTEIN [facility] X-ray of chest, two views 2019-06-29 00:00:00 SUGAR GOLDSTEIN [facility] CT CHEST WO CONTRAST 2019-04-10 12:14:04 Aracely Kim on [facility] CBC WITH PLATELET AND DIFFERENTIAL 2019-04-08 10:06:00 Porfirio Corbett COMPREHENSIVE METABOLIC PANEL 2019-04-08 10:06:00 Patria Corbett LIPID PANEL 2019-04-08 10:06:00 Patria Corbett THYROID STIMULATING HORMONE 2019-04-08 10:06:00 Patria Corbett men [place] [facility] MRI jnt of lwr extre w/o dye 2019-03-25 00:00:[address] [facility] Plan of Care Planned Activity Planned Date Details Comments Source Future Scheduled Test 2025-05-15 00:00:00 COLONOSCOPY SCREEN ING [code = COLONOSCOPY SCREENING] [facility] Future Scheduled Test 2021-06-18 00:00:00 BREAST CANCER SCRE ENING [code = BREAST CANCER SCREENING] [facility] Future Scheduled Test 2020-04-08 00:00:00 SHINGLES VACCINES (#1) [code = SHINGLES VACCINES (#1)] Postponed from 2003 (Insurance / Financial) [place] [facility] Future Scheduled Test 2020-01-02 00:00:00 INFLUENZA VACCINE [code = INFLUENZA VACCINE] [place] [facility] Future Scheduled Test 2018 00:00:00 65+ PNEUMOCOCCAL V ACCINE (2 of 2 - PPSV23) [code = 65+ PNEUMOCOCCAL VACCINE (2 of 2 - PPSV23)] [place] [facility] Encounters Start Date/Time End Date/Time Encounter Type Admission Type Attendi [facility] Care Department Encounter ID Source 2019-10-21 00:00:00 2019-10-21 00:00:00 Outpatient PATRIA [facility] [id number] Harley Williamson 2019-09-28 00:00:00 2019-09-28 00:00:00 Outpatient ILDEFONSO DU[facility] [id number] Harley Williamson 2019-09-18 00:00:00 2019-09-18 00:00:00 Outpatient ILDEFONSO [facility] [id number] [facility] 2019-09-18 00:00:00 2019-09-18 00:00:00 Outpatient ILDEFONSO [facility] [id number] [facility] 2019-08-13 13:10:00 2019-09-01 23:59:00 Discharged Recurring [facility] [id number] [facility] 2019-08-06 00:00:00 2019-08-06 00:00:00 Outpatient PATRIA CORBETT [facility] [id number] [facility] 2019-07-29 00:00:00 2019-07-29 00:00:00 Outpatient PATRIA CORBETT [facility] [id number] Harley Williamson 2019-07-29 00:00:00 2019-07-29 00:00:00 Outpatient PATRIA CORBETT [facility] [id number] Harley Williamson 2019-07-29 00:00:00 2019-07-29 00:00:00 Outpatient PATRIA CORBETT [facility] [id number] Harley Williamson 2019-07-01 05:54:00 2019-07-01 05:54:00 Registered Surgical Day Car e 3 SUGAR GOLDSTEIN [facility] [id number] [facility] 2019-06-27 15:55:00 2019-06-27 16:30:00 Departed Emergency Room [facility] [id number] [facility] 2019-04-10 00:00:00 2019-04-10 00:00:00 Outpatient JIAN KIM [facility] [id number] [place] [facility] 2019-03-25 10:16:00 2019-03-25 10:16:00 Registered Clinic 3 SUGAR GOLDSTEIN [facility] [id number] [facility] 2014-02-02 15:40:00 2014-02-02 15:40:00 Unknown MHIEALT [facility] [id number] [facility] 2014-02-02 09:40:00 2014-02-02 09:40:00 Outpatient [facility] [id number] eClinicalWo rks Results Test Description Test Time Test Comments Results Result Comments Source ECG 12 lead 2019-10-21 10:25:44 Test Item Ventricular rate (test code = 253) 70 Atrial rate (test code = 255) 70 IA interval (test code = 266) 166 QRSD interval (test code = 260) 78 QT interval (test code = 264) 408 QTC interval (test code = 265) 440 P axis 1 (test code = 267) 70 QRS axis 1 (test code = 268) 67 T wave axis (test code = 270) 57 EKG impression (test code = 273) Normal sinus rhythm-N ormal ECG-No previous ECGs available- Harley ReinaistCOVID Artemf (NCOVB)2019-09-24 18:43:44* Test Item Value Reference Range Interpretation Comments COVID BioRef (NCOVB) (test code = 45109-0) Not Detected Not Detecte d Source Nasopharyngeal SwabTesting performed at [facility] [address] [place] [address] NOTE: Please consider re-collection of a new specimen, if clinically indicated. NOTE: The COVID-19 assay has been cleared by the U.S. Food and DrugAdministration under the Emergency Use Authorization (EUA). [facility] is designated as a high complexity laboratory by the ClinicalLaboratory Improvement Amendments of 1988(CLIA) and is qualified to performthis test. ASSAY INFORMATION: Real Time RT-PCR [place] [facility] [id number] 22:53:47* Test Item Value Reference Range Interpretation Comments Respiratory pathogen panel (test code = 2148) Positive for Coronavirus HKU1 Negative for all other pathogens tested:Negative for AdenovirusNegative for Coronavirus VJ51Lixvkzoz for Coronavirus 229ENegative for Coronavirus YR67Aqdeolgq for Human MetapneumovirusNegative for Rhinovirus/EnterovirusNegative for Influenza ANegative for Influenza A/S9Ivapnkxe for Influenza A/Q2Iswjnrot for Influenza A/H1-2009Negative for Influenza BNegative for Parainfluenza Virus 1Negative for Parainfluenza Virus 2Negative for Parainfluenza Virus 3Negative for Parainfluenza Virus 4Negative for Respiratory Syncytial VirusNegative for Bordetella pertussisNegative for Chlamydophila pneumoniaeNegative for Mycoplasma pneumoniaeThis real-time PCR assay detects the presence of nucleic acids (RNA or DNA) for the respiratory pathogens listed. A result of "Not-detected" does not exclude the possibility of the presence of one or more pathogens at concentrations less than the detectable limits of the assa A Specimen I nformationSpecimen Source: NaresSpecimen Site: Not specified Lab Interpretation (test code = 27138-5) Abnormal [place] [facility] with platelet and [id number] 17:19:49* Test Item Value Reference Range Interpretation Comments WBC (test code = 19179-3) 13.32 4.50- 11.00 k/uL H RBC (test code = 86268-1) 3.82 m/uL 4.2-5.5 L HGB (test code = 718-7) 11.6 g/dL 12-16 L HCT (test code = 4544-3) 36.4 % 37-47 L MCV (test code = 787-2) 95.3 fL 82-100 MCH (test code = 785-6) 30.4 pg 27-34 MCHC (test code = 786-4) 31.9 g/dL 31-37 RDW - SD (test code = 56715-4) 50.5 fL 37-55 MPV (test code = 66146-2) 11.7 fL 8.8-13.2 Platelet count (test code = 10062-3) 193 150- 400 k/uL Nucleated RBC (test code = 38847-0) 0.00 /100 WBC Neutrophils (test code = 92947-6) 72.3 % 39-69 H Lymphocytes (test code = 75871-1) 14.8 % 25-45 L Monocytes (test code = 14343-2) 12.2 % 0-10 H Eosinophils (test code = 93920-1) 0.0 % 0-5 Basophils (test code = 71551-1) 0.1 % 0-1 Lab Interpretation (test code = 17236-9) Abnormal [place] [facility] Chest 2 [id number] 15:57:15Hm Interface, Radiology Results Incoming - 07/29/2019 4:00 PM CSTEXAMINATION: XR CHEST 2 VWCLINICAL HISTORY: R50.9 Fever unspecified, Acute resp illness > 40 years old, copd fevers and coughCOMPARISON: 07/10/2017 chest radiographs.IMPRESSION:Stable prominence of the central airways seen on the lateral view, compatible with history of asthma. Minimal subsegmental atelectasis in the bases. No new focal airspace consolidation, peribronchial cuffing or pulmonary edema. No pleural effusion or pneumothorax.Cardiomediastinal silhouette is normal.No acute osseous abnormality. Mild spondylosis with bridging osteophytosis. Upper abdominal structures are unremarkable.[facility]-[id number] and approved by radiology r esident/fellow: Tisha Mane, Michael Yoo, personally reviewed the imag es and resident's/fellow's findings and agree with the final report.[facility] Influenza A/A1729-03-34 13:05:00* Test Item Value Reference Range Interpretation Comments Rapid Influenza A Ag (test code = 42180-7) Negative Rapid Influenza B Ag (test code = 05427-1) Negative [facility] 2 [id number] 13:11:00 [place] [address] Patient Name: RONEN CURIEL MR #: [id number] : 1955 Age/Sex: 64/F Req #: [id number] Adm Physician: Ordered by: SUGAR GOLDSTEIN MD Report #: [id number] Location: OR Room/Bed: Procedure: [id number] DX /CHEST 2 VIEWS Exam Date: 06/29/19 Exam Time: 1255 REPORT STATUS: Signed EXAMINATION: CHEST 2 VIEWS INDICATION: Pre-operative COMPARISON: None FINDINGS: LINES/TUBES:None LUNGS:The lungs are well-inflated. No f ocal consolidation or pulmonary edema. PLEURA:No pleural effusion or pneumo thorax. MEDIASTINUM:The cardiomediastinal silhouette appears normal in size and shape. BONES/SOFT TISSUES:No acute osseous injury. ABDOMEN:No free air under the diaphragm. IMPRESSION: No focal pneumonia or pulmonary edema. Signed by: Oswaldo De Santiago MD on 06/29/2019 1:11 PM Dictated By: OSWALDO DE SANTIAGO MD 10 Transc ribed By: MARY on 06/29/191310 COPY TO: SUGAR GOLDSTEIN MD White Blood [id number] 12:59:00* Test Item Value Reference Range Interpretation Comments White Blood Count (test code = 6690-2) 8.57 4.8-10.8 [facility] Fibmt0490-47-12 12:59:00* Test Item Value Reference Range Interpretation Comments Red Blood Count (test code = 789-8) 3.99 3.6-5.1 [facility]Hemoglobin2020-01-27 12:59:00* Test Item Value Reference Range Interpretation Comments Hemoglobin (test code = 43456-1) 12.2 12.0-16.0 [facility] CenterHematocrit2020-01-27 12:59:00* Test Item Value Reference Range Interpretation Comments Hematocrit (test code = 4544-3) 38.0 34.2-44.1 [facility] CenterMean Corpuscular Hypghc6394-86-34 12:59:00* Test Item Value Reference Range Interpretation Comments Mean Corpuscular Volume (test code = 787-2) 95.2 81-99 [facility]Mean Corpuscular Ariizrlana7469-08-08 12:59:00* Test Item Value Reference Range Interpretation Comments Mean Corpuscular Hemoglobin (test code = 785-6) 30.6 28-32 [facility]Mean Corpuscular Hemoglobin Concent 2019-06-29 12:59:00* Test Item Value Reference Range Interpretation Comments Mean Corpuscular Hemoglobin Concent (test code = 786-4) 32.1 31-35 [facility] CenterRed Cell Distribution Izhqx0229-46-76 12:59:00* Test Item Value Reference Range Interpretation Comments Red Cell Distribution Width (test code = 79326-5) 14.5 11.7 -14.[address] [facility] CenterPlatelet Eblgf2950-54-45 12:59:00* Test Item Value Reference Range Interpretation Comments Platelet Count (test code = 777-3) 219 140-360 [facility] CenterNeutrophils (%) (Auto)2019-06-29 12:59:00 * Test Item Value Reference Range Interpretation Comments Neutrophils (%) (Auto) (test code = 89176-9) 60.7 38.7-80.0 [facility] CenterLymphocytes (%) (Auto)2019-06-29 12:59:00 * Test Item Value Reference Range Interpretation Comments Lymphocytes (%) (Auto) (test code = 736-9) 29.5 18.0-39.1 [facility] CenterMonocytes (%) (Auto)2019-06-29 12:59:00* Test Item Value Reference Range Interpretation Comments Monocytes (%) (Auto) (test code = 5905-5) 8.8 4.4-11.3 [facility] CenterEosinophils (%) (Auto)2019-06-29 12:59:00 * Test Item Value Reference Range Interpretation Comments Eosinophils (%) (Auto) (test code = 713-8) 0.0 0.0-6.0 [facility] CenterBasophils (%) (Auto)2019-06-29 12:59:00* Test Item Value Reference Range Interpretation Comments Basophils (%) (Auto) (test code = 706-2) 0.2 0.0-1.0 [facility] CenterIM GRANULOCYTES %2019-06-29 12:59:00* Test Item Value Reference Range Interpretation Comments IM GRANULOCYTES % (test code = IM GRANULOCYTES %) 0.8 0.0- 1.0 [facility] CenterNeutrophils # (Auto)2019-06-29 12:59:00* Test Item Value Reference Range Interpretation Comments Neutrophils # (Auto) (test code = 751-8) 5.2 2.1-6.9 [facility] CenterLymphocytes # (Auto)2019-06-29 12:59:00* Test Item Value Reference Range Interpretation Comments Lymphocytes # (Auto) (test code = 45099-8) 2.5 1.0-3.2 [facility] CenterMonocytes # (Auto)2019-06-29 12:59:00* Test Item Value Reference Range Interpretation Comments Monocytes # (Auto) (test code = 742-7) 0.8 0.2-0.8 [facility] CenterEosinophils # (Auto)2019-06-29 12:59:00* Test Item Value Reference Range Interpretation Comments Eosinophils # (Auto) (test code = 711-2) 0.0 0.0-0.4 [facility] CenterBasophils # (Auto)2019-06-29 12:59:00* Test Item Value Reference Range Interpretation Comments Basophils # (Auto) (test code = 704-7) 0.0 0.0-0.1 [facility] CenterAbsolute Immature Granulocyte (auto 2019-06-29 12:59:00* Test Item Value Reference Range Interpretation Comments Absolute Immature Granulocyte (auto (tamera t code = Absolute Immature Granulocyte (auto) 0.07 0-0.1 [facility] DON[facility]IE [facility] DIGITAL 2019-06-17 14:28:47 - SCR MAMM BILATERAL DONNIE CAD DIGITALBILATERAL DIGITAL SCREENING MAMMOGRAM 3D/2D WITH CAD: 06/13/2019CLINICAL: Asymptomatic. Digital breast tomosynthesis was performed in addition to routine CC and MLO views. Current mammographic images were evaluated by either a [employer] M-Vu or a [employer] ImageChecker CAD (computer aided detection system). Comparison is made to exams dated 05/13/2018 mammogram, 05/08/2017 mammogram, and 05/07/2016 mammogram - [facility] There are scattered fibroglandular tissues in both breasts. There is a biopsy clip in the right breast. No suspicious mass, architectural distortion, malignant type calcification, or lymph node abnormality detected. Breast architecture is stable compared to prior exams.IMPRESSION: BENIGNThere is no mammographic evidence of malignancy. Resume annual screening mammography in one year. Eliza perry/rachel:06/17/2019 14:28:47 Lpn Cma: Philly MATTHEWS, [facility]-FWletter sent: BIRADS 1-2 Normal Mammogram BI-RADS: 2 BenignCT Chest Wo Jypeahra4514-44-87 12:32:32Hm Interface, Radiology Results 04/10/2019 12:35 PM CSTStudy:CT CHEST WO CONTRASTHistory: R91.1 Solitary pulmonary nodule, NODULECOMPARISON: April 17, 2018TECHNIQUE: Multiple axial CT images of the chest performed Without IV contrast.. Coronal and sagittal reconstructions were done. CT imaging was performed with iterative reconstruction technique and/or automated exposure control to reduce radiation dose.FINDINGS:LUNGS: There is no focal consolidation, pleural effusion, or pneumothorax. Groundglass scarring or atelectasis in the lung bases. Left lower lobe pulmonary nodule measuring 3 mm stable in image 80 series 3. A lobulated pulmonary nodule in the left lower lobe measuring 7 mm in image 87 series 3 also stable. No suspicious pulmonary nodules. No pulmonary mass.AIRWAYS: No central endobronchial or endotracheal lesions are seen.MEDIASTINUM: The thoracic aorta is without aneurysm. Cardiac mildly enlarged. Stable trace pericardial effusion. No enlarged mediastinal or hilar lymph nodes present. The esophagus is unremarkable.BONES AND OVERLYING SOFT TISSUES: The visualized bones are without destructive lesions. No enlarged axillary lymph nodes present.VISUALIZED LOWER NECK AND UPPER ABDOMEN:Unremarkable.IMPRESSION:Stable left lower lobe pulmonary nodules. Follow-up CT chest in one year recommended for 2 year stability evaluat ion.[id number] [place] MethodistComprehensive metabolic cdrin1749-47-37 02:42:00* Test Item Value Reference Range Interpretation Comments Glucose (test code = 2345-7) 82 mg/dL 65-99 Fasting reference interval BUN (test code = 3094-0) 14 mg/dL 7-25 Creatinine (test code = 2160-0) 0.95 mg/dL 0.5-0.99 For patients >49 years of age, the reference limitfor Creatinine is approximately 13% higher for peopleidentified as -Maur[place]. EGFR Non-Afr. Mauritian (test code = 2775) 63 > OR = 60 mL /min/1.73m2 EGFR (test code = 08752-2) 73 > OR = 60 mL/min/1.73m2 BUN/creatinine ratio (test code = 3097-3) NOT APPLICABLE 6- 22 (venu c) Sodium (test code = 2951-2) 142 mmol/L 135-146 Potassium (test code = 2823-3) 4.8 mmol/L 3.5-5.3 Chloride (test code = 2074-0) 108 mmol/L 98-110 CO2 (test code = 2027-) 25 mmol/L 20-32 Calcium (test code = 26289-7) 9.7 mg/dL 8.6-10.4 Protein (test code = 2885-2) 6.4 g/dL 6.1-8.1 Albumin, S (test code = 1751-7) 4.0 g/dL 3.6-5.1 Globulin, total (test code = 09537-0) 2.4 1.9- 3.7 g/dL (c alc) Albumin/globulin ratio (test code = 1759-0) 1.7 1.0- 2.5 ( calc) Total bilirubin (test code = 1974-) 0.4 mg/dL 0.2-1.2 Alkaline phosphatase (test code = 6768-6) 71 U/L 33-130 AST (test code = 1920-8) 19 U/L 10-35 ALT (test code = 1742-6) 14 U/L 6-29 YOAV (test code = YOAV) FASTING:YESFASTING: YES RAC (test code = RAC) Performing Organization Info rmation: Site ID: RGA Name: [facility] Address: [address] [place] [id number] Director: Hermes Souza MethodistLipid [id number] 02:42:00* Test Item Value Reference Range Interpretation Comments Cholesterol, total (test code = 2093-3) 167 mg/dL <200 HDL cholesterol (test code = 2084-9) 57 mg/dL >50 Triglycerides (test code = 2571-8) 136 mg/dL <150 LDL cholesterol calculated (test code = 95965-8) 87 mg/dL (calc) Reference range: <100 Desirable range <100 mg/dL for primary prevention; <70 mg/dL for patients with CHD or diabetic patients with > or = 2 CHD risk factors. LDL-C is now calculated using the Garland-Black calculation, which is a validated novel method providing better accuracy than the Friedewald equation in the estimation of LDL-C. Garland SS et al. EL. 2013;310(19): 2893-9536 (http:/ /education.[employer]/faq/GMK871) Cholesterol/HDL ratio (test code = 9830-1) 2.9 <5.0 (calc) Non-HDL cholesterol (test code = 16529-1) 110 <130 mg/dL ( calc) For patients with diabetes plus 1 major ASCVD risk factor, treating to a non-HDL-C goal of <100 mg/dL (LDL-C of <70 mg/dL) is considered a therapeutic option. YOAV (test code = YOAV) FASTING:YESFASTING: YES RAC (test code = RAC) Performing Organization Info rmation: Site ID: RGA Name: [facility] Address: [address] [place] [address] Director: Hermes Luna [place] MethodistThyroid stimulating aukomef4415-44-97 02:42:00* Test Item Value Reference Range Interpretation Comments TSH (test code = 3016-3) 1.64 0.40- 4.50 mIU/L YOAV (test code = YOAV) FASTING:YESFASTING: YES RAC (test code = RAC) Performing Organization Info rmation: Site ID: RGA Name: [facility] Address: [address] [place] [address] Director: Hermes Luna [place] [facility]MRI KNEE LEFT [id number] 11:40:00 [place] [address] Patient Name: RONEN CURIEL MR #: [id number] : 1955 Age/Sex: 63/F Req #: [id number] Adm Physician: Ordered by: SUGAR GOLDSTEIN MD Report #: [id number] Location: [facility] Room/Bed: Procedure: [id number] MR I/MRI KNEE LEFT WO Exam Date: Exam Time: REPORT STATUS: Signed TECHNIQUE: Magnet ic resonance imaging of the LEFT KNEE was performed WITHOUT injected contrast. HISTORY: TEAR OF LATERAL MEDIAL MENISCUS , lateral and medial pain, fa ll 1990, pain when walking, within the, surgery 1990 "scrape bone fragments" COMPARISON: None available. FINDINGS: LIGAMENTS AND TENDONS: ACL: I ntact PCL: Intact Collateral ligaments: Intact Iliotibial band: Unremar kable Popliteal tendon: Intact Extensor mechanism: Intact JOINT: Me nisci: Medial: Intrasubstance degeneration of the posterior horn, without a discrete surfacing tear. Lateral: Contour irregularity and marked attenuati on of the posterior root. Mild free margin attenuation and fraying of the body with peripheral extrusion of the remaining body. Articular Cartilage: Medial Compartment: Intermediate grade erosion of the weightbearing cartilage. Lateral Compartment: Low-grade erosion of the weightbearing cartilage with central full-thickness fissuring at the lateral tibial plateau. Patellofemoral Compartment: Diffuse high-grade to full-thickness patellar erosions, most no tably the lateral facet. Full-thickness erosions of the lateral trochlea. Joint Fluid: The amount of fluid within the joint is within physiologic limi ts. A multilobulated and multiloculated Rebolledo's cyst, in greatest dimensions measuring up to 2.6 cm (AP) x 2.3 cm (ML) x 7.8 cm (CC). BONES: No focal or infiltrative bone marrow replacing abnormality. No acute frac ture. SOFT TISSUES: Edema within the adipose tissue interposed between th e proximal patellar tendon lateral femoral condyle. IMPRESSION: 1. 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 2. Po stsurgical changes versus degenerative tearing of the lateral meniscus. 3. Fi ndings which can be seen in the setting of patellar tendon lateral femoral con dyle friction syndrome. 4. Rebolledo's cyst. Signed by: Anabelle Callahan.O ., M.M.M. on 03/25/2019 11:50 AM Dictated By: MIRIAM GUPTA DO [facility] Signed By: MIRIAM GUPTA DO on 03/25/19 1150 Transcribed By: MARY on 03/25 1150 COPY TO: SUGAR GOLDSTEIN MD [facility] MAMM BILATERAL DONNIE CAD [id number] 08:37:53 - SCR MAMM BILATERAL DONNIE CAD DIGITALBILATERAL DIGITAL SCREENING MAMMOGRAM 3D/2D WITH CAD: 05/13/2018CLINICAL: Asymptomatic. Digital breast tomosynthesis was performed in addition to routine CC and MLO views. Current mammographic images were evaluated by either a [employer] M-Vu or a [employer] ImageChecker CAD (computer aided detection system). Comparison is made to exams dated 05/08/2017 mammogram, 05/07/2016 mammogram, and 05/04/2015 mammogram - [facility]. There are scattered fibroglandular tissues in both breasts. There is a benign calcification in the right breast. There also is a benign nodule in the left breast. Additionally, there is a biopsy clip in the right breast. No suspicious mass, architectural distortion, malignant type calcification, or lymph node abnormality detected. Breast architecture is stable compared to prior exams.IMPRESSION: BENIGNThere is no mammographic evidence of malignancy. Resume annual screening mammography in one year. The [place] [employer] Society recommends annual screening breast MRI in addition to mammography for women with a lifetime risk of breast cancer greater than 20%.Brant Jacobson M.D. ss/:05/14/2018 08:37:53 Lpn Cma: Alexus MATTHEWS, [facility]-FWletter sent: BIRADS 1-2 Normal Mammogram BI-RADS: 2 Benign
[2019-10-31] MEDS ORDERED: ONDANSETRON HCL INJ 2MG/ML 2ML 2 MG/ML VIAL IV STA (00:56)
[2019-10-31] MEDS ORDERED: MORPHINE SULFATE INJ 4 MG/ML INJ 1ML IV PRN (01:00)
[2019-10-31] MEDS ORDERED: ONDANSETRON HCL INJ 2MG/ML 2ML 2 MG/ML VIAL IV PRN (01:30)
--- NOTE | 2019-10-31 02:16 | Emergency Department Note ---
History of Present Illnes History of Present Illness Chief Complaint: Extremity Trauma/Pain History of Present Illness This is a 64 year old female arrived to the ED with complaints of right foot pain, has a procedure done by podiatry today. Chief Complaint Comment 64 Y/O FEMALE PT AAOX3 PRESENTS TO ED POST OP FROM SURGICAL PROCEDURE THIS AFTRNOON WITH DR. ANNE; PT REPORTS INCREASED EDEMA AND DRAINAGE TO RIGHT FOOT; ER MD TO TRIAGE FOR INITIAL EVAL Historian: Patient Arrival Mode: Car Severity: mild Onset quality: gradual Past Medical/Family History Physician Review I have reviewed the patient's past medical and family history. Any updates have been documented here. Past Medical History Recent Fever: No Clinical Suspicion of Infectio: No New/Unexplained Change in Ment: No Past Medical History: Hypertension, COPD, Anxiety, Depression, Other Mental Illness, Hyperlipedemia Other Medical History: OBESITY PROLAPSE REPAIR BLADDER INGROWN TOE NAIL Past Surgical History: Hysterectomy, T&A, Tubal Ligation, Knee Replacement Other Surgery: RIGHT FOOT SX 10/30/2019 Family History Family history of heart diseas: Yes Other Last Tetanus: UTD Review of Systems Review of Systems Review of other systems All other systems reviewed and negative. Physical Exam Related Data Allergies: Coded Allergies: No Known Allergies (Unverified , 05/15/12) Triage Vital Signs Vital Signs Date Time Temp Pulse Resp B/P (MAP) Pulse Ox O2 Delivery O2 Flow Rate FiO2 10/31/19 00:08 98.4 72 17 165/92 98 Physical Exam CONSTITUTIONAL Constitutional: well-developed, well-nourished HENT HENT: normocephalic, atraumatic, oropharynx clear/moist, nose normal HENT L/R: left ext ear normal, right ext ear normal EYES Eyes: PERRL, conjunctivae normal NECK Neck: ROM normal PULMONARY Pulmonary: effort normal, breath sounds normal CARDIOVASCULAR Cardiovascular: regular rhythm, heart sounds normal, capillary refill normal, normal rate GASTROINTESTINAL Abdominal: soft, nontender, bowel sounds normal GENITOURINARY Genitourinary: exam deferred SKIN Skin: warm, dry MUSCULOSKELETAL Musculoskeletal: ROM normal, other (dressing noted over right lower extremity, dressing noted to be covered in blood and dirty, good cap refill noted over big toe, swelling noted, however, limited exam given recent postoperative bandage) NEUROLOGICAL Neurological: alert, oriented x 3, no gross motor or sensory deficits PSYCHOLOGICAL Psychological: mood/affect normal, judgement normal Results Laboratory Lab results reviewed: Yes Critical Care Time Subsequent provider I assumed direction of critical care for this patient from another provider of my specialty. Assessment & Plan Reassessment Reassessment 64-year-old female right ED with complaints of right lower extremity pain, recently postop from procedure with a server. Patient states her foot appears more swollen and the bandages dirty from bleeding. Patient denies ambulating on the extremity, states she has kept her foot above her heart as instructed by her server/surgeon. Patient requesting pain control. Patient admitted for evaluation by server and further monitoring. No concerns of compartment syndrome at time of evaluation, good cap refill noted, extremity well perfused. Further workup to be done by primary medicine team and podiatric surgery consults. Assessment & Plan Final Impression: (1) PAIN IN RIGHT FOOT Assessment & Plan admit for podiatry eval Last Vital Signs Date Time Temp Pulse Resp B/P (MAP) Pulse Ox O2 Delivery O2 Flow Rate FiO2 10/31/19 00:08 98.4 72 17 165/92 98 Home Meds Reported Medications [Arthrotec 60/75MG] No Conflict Check, 1 TAB PO BID 10/27/19 Benralizumab (Fasenra) 30 Mg/1 Ml Syringe, IM [id number] 06/12/19 Budesonide/Formoterol Fumarate (SYMBICORT 160-4.5 MCG INHALER) 10.2 Gm Hfa.aer.ad, 2 INH INH BID 06/12/19 Albuterol Sulf* (PROAIR HFA INHALER*) 8.5 Gm Inh, 1 SPR INH PRN 06/12/19 Ipratropium/Albuterol Sulfate (COMBIVENT RESPIMAT INHAL SPRAY) 4 Gm Aer.w.adap, 1 APPFUL NEB BID, INH 06/12/19 Azelastine/Fluticasone (DYMISTA NASAL SPRAY) 23 Gm [place].pump, 1 SPR INH BID 06/12/19 Ipratropium [place] (IPRATROPIUM BROMIDE) 0.2 Mg/1 Ml Solution, 2.5 ML NA BID, EACH 06/12/19 Montelukast Sodium (MONTELUKAST SODIUM) 10 Mg Tablet, 10 MG PO HS, #30 TAB 06/12/19 Famotidine (FAMOTIDINE) 40 Mg Tablet, 40 MG PO DAILY 06/12/19 Atorvastatin Calcium (ATORVASTATIN CALCIUM) 20 Mg Tablet, 20 MG PO HS, #30 TAB 06/12/19 Losartan Potassium (LOSARTAN POTASSIUM) 25 Mg Tablet, 50 MG PO HS 06/12/19 Clonidine HCl (Clonidine HCl ER) 0.1 Mg Tab.er.12h, PO HS 06/12/19 Docusate Sodium (COLACE) 100 Mg Capsule, PRN 05/16/12 Ubidecarenone/Vitamin E Mixed (COQ10 SG 100 SOFTGEL) 1 Each Capsule, DAILY 05/16/12 Cholecalciferol (Vitamin D3) (VITAMIN D3) 400 Unit Tab.chew, DAILY 05/16/12 Calcium Carb/Vit D3/Minerals (CALCIUM 600 + D TABLET) 1 Each Tablet, BID 05/16/12 Multivitamins-Min/Fa/Ginkgo (WOMEN'S 50+ DAILY FORMULA TAB) 1 Each Tablet, DAILY 05/16/12 Vitamin B Complex (VITAMIN B COMPLEX) 1 Each Tablet, DAILY 05/16/12 Estradiol (ESTRACE) 42.5 Gm Cr, 1X/WEEK 05/16/12 Tiotropium [place] (SPIRIVA) 18 Mcg Cap.w.dev, 2 PUMP INH DAILY 05/16/12 Pantoprazole Sodium* (PROTONIX) 40 Mg Tablet.dr, 40 MG PO DAILY 05/16/12 Gabapentin (NEURONTIN) 300 Mg Capsule, 900 MG PO TID 05/16/12 Duloxetine Hcl (CYMBALTA) 30 Mg Capsule.dr, DAILY 05/16/12 Citalopram Hydrobromide (CITALOPRAM HBR) 40 Mg Tablet, HS 05/16/12 Discontinued Reported Medications Amoxicillin/Potassium Clav (AUGMENTIN 875-125 TABLET) 1 Each Tablet, 875 MG PO DAILY, #30 TAB 07/01/19 Diclofenac Sodium/Misoprostol (ARTHROTEC EC 75 MG-200 MCG TAB) 1 Each Tablet.dr, BID 05/16/12 Medications in the ED Morphine Sulfate 4 mg ONCE PRN IV SEVERE PAIN (7-10); Start 10/31/19 at 01:00; Stop 11/07/19 at 00:59 Ondansetron HCl 4 mg NOW STAT IV ; Start 10/31/19 at 00:56; Stop 10/31/19 at 01:06; Status DC Ondansetron HCl 4 mg Q4H PRN IV NAUSEA AND VOMITING; Start 10/31/19 at 01:30; Stop 11/30/19 at 01:29 Morphine Sulfate 4 mg Q4H PRN IV SEVERE PAIN (7-10); Start 10/31/19 at 01:30; Stop 11/07/19 at 01:29 LAURO PLASENCIA DO October 31, 2019 02:16
--- OUTSIDE RECORDS SUMMARY | 2019-10-31 03:06 | XMS REPORT | Clinical Summary ---
Author Author [facility] Address Unknown Phone Unavailable Care Team Providers Care Potato Pancake Frier Name Role Phone Tenisha Anders MD PCP Allergies Comments Active Allergy Reactions Severity Noted Date No Known Drug Allergies 03/23/2016 Medications End Date Status Medication Sig Dispensed Refills Start Date Active BACILLUS COAGULANS Probiotic 0 (PROBIOTIC, B. COAGULANS, ORAL) Active omega 7-hsy-teg-fish oil Take by oral 0 183.3 mg-75 [...] -200 unit per tablet Active vit B aomc-F-ZZ-iron-vit Vitamins B 0 E (VITAMINS B COMPLEX) [...] MG tablet 300 mg tablet 04/08/2019 Discontinued eyqzc-i-wulmjzwalehuo Take by oral 0 (BEANO) 150 unit [...] Anders MD 11/12/2018 Refill Family Medicine after 10/30/2018 Immunizations Name Administration Dates Next Due FLUZONE [...] Type Specialty Visus, Tenisha Camarillo MD [address] [place] [address] 04/11/2020 Office Visit Internal Medicine [...] Fever, u nspecified W/AUTO DIFF 2:50 PM [facility] RESPIRATORY PATHOGEN Routine 07/29/2019 Fever, un specified PANEL 2:50 PM [facility] XR CHEST 2 VW Routine 07/29/2019 Fever, unspecif ied fever 2:14 PM [facility] cause POCT INFLUENZA A/B Routine 07/29/2019 Fever, unsp ecified fever 1:05 PM [facility] cause CT CHEST WO CONTRAST Routine 04/10/2019 Solitary pulmonary nodule 12:14 PM [facility] THYROID STIMULATING Routine 04/08/2019 Encounter for routine HORMONE 10:06 AM [facility] adult physical exam with abnormal findings LIPID PANEL Routine 04/08/2019 Encounter for r outine 10:06 AM [facility] adult physical exam with abnormal findings COMPREHENSIVE METABOLIC Routine 04/08/[address] for routine PANEL 10:06 AM [facility] adult physical exam with abnormal findings CBC WITH PLATELET AND Routine 04/08/2019 Encounte r for routine DIFFERENTIAL 10:06 AM [facility] adult physical exam with abnormal findings after 10/30/2018 Results * ECG 12 lead (10/21/2019 10:11 AM CDT) Ventricular 70 [facility] MUSE rate Atrial rate 70 [facility] MUSE NV interval 166 [facility] MUSE QRSD interval 78 [...] is n ot available. Performing Organization Address City/State/[facility] Ph one Number H MUSE [address] [place] [address] * COVID BioRef (NCOVB) (09/18/2019 1:33 PM CDT) Pathologist [facility] [place] COVID BioRef Not Detected Not Detected [employer] (NCOVB) Comment: LAB Source Nasopharyngeal Swab Testing performed at [facility] [address] [place] [id number] NOTE: Please consider re-collection of a new specimen, if clinically indicated. NOTE: The COVID-19 assay has been cleared by the U.S. Food and Drug Administration under the Emergency Use Authorization (EUA). [facility] is designated as a high complexity laboratory by the Clinical Laboratory Improvement Amendments of 1988(CLIA) and is qualified to perform this test. ASSAY INFORMATION: Real Time RT-PCR Specimen Serum Performing Organization Address City/[facility] Ph one Number [facility] DEPARTMENT OF [address] [place] [address] PATHOLOGY AND GENOMIC MEDICINE BIOREFERENCE LAB [address] [place], [place] [id number] * Respiratory pathogen panel (07/29/2019 2:50 PM SHE[facility]ING P[facility]ER) Pathologist [facility] [place] Respiratory Positive for Coronavirus HKU1 [place] pathogen panel ISLAM Negative for all other HOSPITAL pathogens tested: [...] Nares - Not specified Performing Organization Address [facility] Ph one Number [facility] DEPARTMENT OF [address] [place] [address] PATHOLOGY AND GENOMIC MEDICINE [address] * CBC with platelet and differential (07/29/2019 2:50 PM SHE[facility]ER) Only the most recent of 2 results within the time period is included. [facility] WBC 13.32 (H) 4.50 - 11.00 k/uL [facility] RBC 3.82 (L) 4.20 - 5.50 m/uL [facility] HGB 11.6 (L) 12.0 - 16.0 g/dL [facility] HCT 36.4 (L) 37.0 - 47.0 % [facility] MCV 95.3 82.0 - 100.0 fL [facility] MCH 30.4 27.0 - 34.0 pg [facility] MCHC 31.9 31.0 - 37.0 g/dL [facility] RDW - SD 50.5 37.0 - 55.0 fL [facility] MPV 11.7 8.8 - 13.2 fL [facility] Platelet count 193 150 - 400 k/uL [facility] Nucleated RBC 0.00 /100 WBC [facility] Neutrophils 72.3 (H) 39.0 - 69.0 % [facility] Lymphocytes 14.8 (L) 25.0 - 45.0 % [facility] Monocytes 12.2 (H) 0.0 - 10.0 % [facility] Eosinophils 0.0 0.0 - 5.0 % [facility] Basophils 0.1 0.0 - 1.0 % [facility] Specimen Blood Performing Organization Address City/State/[facility] Ph one Number [facility] [place] [address] [place], [place] [address] PATHOLOGY AND GENOMIC MEDICINE [facility] [address] [place] [address] [facility] * XR Chest 2 Vw (07/29/2019 2:14 PM [facility]) Specimen Narrative Performed At EXAMINATION: XR CHEST [...] osteophytosis. Upper abdominal structures are unremark able. [facility]-[id number] Dictated and approved by radiology resi dent/fellow: Fuentes Hall M.D. I, Michael Yoo, personally reviewed the images and resident's/fellow's findings and agree with the final report. Procedure Note Interface, Radiology Results Incoming - 07/29/2019 4:00 PM [facility] EXAMINATION: XR CHEST 2 VW CLINICAL HISTORY: [...] bridging osteophytosis. Upper abdominal structures are unremarkable. [facility]-[id number] Dictated and approved by resident services director/fellow: Fuentes Hall M.D. I, Michael Yoo, personally reviewed the images and resident's/fellow's findings and agree with the final report. Performing Organization Address City/State/Zipcode Ph one Number [facility] [address] [place] [address] * POC Influenza A/B (07/29/2019 1:05 PM SHE[facility]ING P[facility]ER) Rapid Influenza Negative A Ag Rapid Influenza Negative B Ag Specimen Nasopharyngeal * CT Chest Wo Contrast (04/10/2019 12:14 PM SHEETING P[facility]ER) Specimen Narrative Performed At Study:CT CHEST WO [...] recommended for 2 year stability evalua tion. [id number] Procedure Note Hm Interface, Radiology Results Incoming - 04/10/2019 12:35 PM [facility] Study:CT CHEST WO CONTRAST History: R91.1 Solitary [...] year recommended for 2 year stability evaluation. [id number] Performing Organization Address City/State/[facility] Ph one Number [facility] [address] [place] [address] * Thyroid stimulating hormone (04/08/2019 10:06 AM SHE[facility]ER) TSH 1.64 0.40 - 4.50 mIU/L [facility] [place] Specimen Blood Narrative Performed At FASTING:YES [facility] FASTING: YES Resulting Agency Comment Performing Organization Information: Site ID: [id number] Name: [facility] Address: [address] [place] [phone] Director: Hermes Luna Performing Organization Address [place]/[facility] Ph one Number [facility] [place] [phone] * Lipid panel (04/08/2019 10:06 AM SHE[facility]ING [facility]ER) Pathologist [facility] [place] Cholesterol, 167 <200 mg/dL [facility] [place] HDL cholesterol 57 >50 mg/dL [facility] [place] Triglycerides 136 <150 mg/dL [facility] [place] LDL cholesterol 87 mg/dL (calc) [facility] calculated Comment: DI[facility]NOST[facility] Reference range: <100 [place] Desirable range <100 mg/dL for primary prevention; <70 mg/dL for patients with CHD or diabetic patients with > or = 2 CHD risk factors. LDL-C is now calculated using the Luana calculation, which is a validated novel method providing better accuracy than the Friedewald equation in the estimation of LDL-C. Garland HUDSON et al. EL. 2013;310(19): 3302-5338 (http://education.ColorPlaza.Codeanywhere/faq/IJG798) Cholesterol/HDL 2.9 <5.0 (calc) [facility] [place] Non-HDL 110 <130 mg/dL (calc) [facility] cholesterol Comment: DIAGNOSTICS For patients with diabetes [place] plus 1 major ASCVD risk factor, treating to a non-HDL-C goal of <100 mg/dL (LDL-C of <70 mg/dL) is considered a therapeutic option. Specimen Blood Narrative Performed At FASTING:YES [facility] FASTING: YES Resulting Agency Comment Performing Organization Information: Site ID: [id number] Name: [facility] Address: [address] [place] [phone] Director: Hermes Luna Performing Organization Address [facility] Ph one Number [facility] [place] [phone] * Comprehensive metabolic panel (04/08/2019 10:06 AM SHEETING PULLER) Pathologist [facility] [place] Glucose 82 65 - 99 mg/dL [facility] Comment: DI[facility]NOSTICS Fasting [place] reference interval BUN 14 7 - 25 mg/dL [facility] [place] Creatinine 0.95 0.50 - 0.99 mg/dL [facility] Comment: DIAGNOSTICS For patients >49 years of age, [place] the reference limit for Creatinine is approximately 13% higher for people identified as -[place]ican. EGFR Non-Afr. 63 > OR = 60 [facility] [place] mL/min/1.73m2 [facility] [place] EGFR 73 > OR = 60 [facility] [place] mL/min/1.73m2 [facility] [place] BUN/creatinine NOT APPLICABLE 6 - 22 (calc) [facility] [place] Sodium 142 135 - 146 mmol/L [facility] [place] Potassium 4.8 3.5 - 5.3 mmol/L [facility] [place] Chloride 108 98 - 110 mmol/L [facility] [place] CO2 25 20 - 32 mmol/L [facility] [place] Calcium 9.7 8.6 - 10.4 mg/dL [facility] [place] Protein 6.4 6.1 - 8.1 g/dL [facility] [place] Albumin, S 4.0 3.6 - 5.1 g/dL [facility] [place] Globulin, total 2.4 1.9 - 3.7 g/dL [facility] (calc) [facility] [place] Albumin/globuli 1.7 1.0 - 2.5 (calc) [facility] n [facility] [place] Total bilirubin 0.4 0.2 - 1.2 mg/dL [facility] [place] Alkaline 71 33 - 130 U/L [facility] phosphatase [facility] [place] AST 19 10 - 35 U/L [facility] [place] ALT 14 6 - 29 U/L [facility] [place] Specimen Blood Narrative Performed At FASTING:YES [facility] FASTING: YES Resulting Agency Comment Performing Organization Information: Site ID: [id number] Name: [facility] Address: [address] [place] [phone] Director: Hermes Luna Performing Organization Address City/State/Zipcode Ph one Number [facility] [address] [address] after 10/30/2018 Insurance Type Payer Benefit Subscriber ID Effective Phone Address Plan / Dates Group Medicare MEDICARE MEDICARE xxxxxxxxxxx 2014-P SMITH, PART A AND resent [place] B Indemnity BCBS BCBS xxxxxxxxxxxxxxx 2016-P PAR/TRAD resent PLAN -[id number] Advance Directives For more information, please contact: [phone] Patient Workers' Compensation Magistrate Explanation Type Date Recorded Advance Directives, Living Will and Medical Power of Finished Goods Inspector
--- OUTSIDE RECORDS SUMMARY | 2019-10-31 03:06 | XMS REPORT ---
Author Author [facility] t Organization [facility] Address [address] [place] [address] [address] [place] [address] Phone Unavailable Care Team Providers Care Test Preparer Name Role Phone ARIC LOPEZ, Brandi ESPAÑA PCP Aric LOPEZ, Rabia España Attphys Srikanth LOPEZ, Thomas Attphys Brandon LOPEZ, Sean Kitchen Attphys [phone] Andry KELLY, Lorie Attphys Unavailable SUGAR GOLDSTEIN Attphys Unavailable Mely LOPEZ, Jose Jessica Attphys Payers Payer Name Policy Type Policy Number Effective Date Expiration Date S medina MEDICAREMEDICARE PART A AND Bxxxxxxxxxxx2013-PresentSTEVE RICKETTS CTMedicare xxxxxxxxxxx 2014 00:00:00 Harley Williamson BCBSBCBS PAR/TRAD PLANxxxxxxxxxxxxxxx2016-PresentIndemni ty xxxxxxxxxxxxxxx 2016 00:00:00 Harley Williamson [facility] [id number] 2016 00:00:00 [facility] Medicare A & B [id number] 2014 00:00:00 [facility] Problems Condition Name Condition Details Condition Category [...] Williamson Exostosis Exos tosis Active Problem 05/11/2014 [facility] Problem Active 2014-05-11 03:50:13 [facility] Ingrown toenail Ingr own toenail Active Problem 05/11/2014 [facility] Problem Active 2014-05-11 03:50:13 [facility] Allergies, Adverse Reactions, Alerts This patient has no known allergies or adverse reactions. Family History Family Member Diagnosis Comments Start Date Stop Date Source Natural brother Colon cancer Halrey Williamson Natural father Colon cancer Harley Williamson Natural sister Colon cancer Harley Williamson Social History Social Habit Start Date Stop Date Quantity Comments Source Sex Assigned At María phillips [facility]ast[facility]arian Exposure to SARS-CoV-2 (event) Not sure Harley Williamson Alcohol intake 2019-10-21 00:00:00 2019-10-21 00:00:00 Current non-drinker of alcohol (finding) Harley Williamson [place]? 2014-04-20 00:00:00 2014-04-20 00:00:00 [facility] Smoking Status Start Date Stop Date Source Never smoker Harley Matta t Medications Ordered Medication Name Filled Medication Name Start Date Stop Da te Current Medication? Ordering Clinician Indication Dosage Frequency Signature (SIG) Comments Components Source BACILLUS COAGULANS (PROBIOTIC, B. COAGULANS, ORAL) 2019-10 10:08:40 Yes Probiotic Harley Coburn thodi omega 2-gqh-qqj-fish oil 183.3 mg-75 mg -91.6 mg-306 mg [...] every day by oral route. Arvind on Rastafarian cranberry extract 200 mg capsule capsule 2019-10-21 10:08:40 Yes Ellura 200 mg (36 mg PAC) capsule Cecile Williamson coenzyme Q10 100 mg capsule 2019-10-21 10:08:40 Yes CoQ-10 100 mg capsule Harley Williamson calcium carbonate-vitamin D3 (CALCIUM 60 0 + D,3,) 600 mg(1,500mg) -200 unit per tablet 2019-10-21 10:08:40 Yes Calcium 600 + D(3) Harley Williamson vit B ygcx-L-SJ-iron-vit E (VITAMINS B C OMPLEX) 500 mg-400 [...] Yes TAKE 1 TABLET DAILY Harley Williamson blibe-m-wdhavdgyrartb (BEANO) 150 unit tablet 20 21-04-06 09:01:18 [...] 8.5 Gm Inh Yes 1 As Needed [facility] Amoxicillin/Potassium Clav (Augmentin 875-125 Tablet) 1 Each Tablet Amoxicillin/Potassium Clav (Augmentin 875-125 Tablet) 1 Each Tablet Yes 875 Daily [facility] Atorvastatin Calcium 20 Mg Tablet Atorvastatin Calcium 20 Mg Tablet Yes 20 Bedtime [facility] Azelastine/Fluticasone (Dymista Nasal [place]) 23 Gm Spr ay.pump Azelastine/Fluticasone (Dymista Nasal [place]) 23 Gm [place].pump Ye s 1 Twice A Day [facility] Benralizumab (Fasenra) 30 Mg/1 Ml Syringe Benralizumab (Fasenra) 30 Mg/1 Ml Syringe Yes [facility] Budesonide/Formoterol Fumarate (Symbicor t 160-4.5 Mcg Inhaler) 10.2 Gm Hfa.aer.ad Budesonide/Formoterol Fumarate (Symbicor t 160-4.5 Mcg Inhaler) 10.2 Gm Hfa.aer.ad Yes 2 Daily [facility] Calcium Carb/Vit D3/Minerals (Calcium 600 + D Tablet) 1 Each Tablet Calcium Carb/Vit D3/Minerals (Calcium 600 + D Tablet) 1 Each Tablet Yes Twice A Day [facility] Cholecalciferol (Vitamin D3) (Vitamin D3) 400 Unit Tab .chew Cholecalciferol (Vitamin D3) (Vitamin D3) 400 Unit Tab.chew Yes Daily [facility] Citalopram Hydrobromide (Citalopram Hbr) 40 Mg Tablet Citalopram Hydrobromide (Citalopram Hbr) 40 Mg Tablet Yes Bedtime [facility] Clonidine Hcl (Clonidine Hcl Er) 0.1 Mg Tab.er.12h Alejandra nidine Hcl (Clonidine Hcl Er) 0.1 Mg Tab.er.12h Yes Bedtime [facility] Diclofenac Sodium/Misoprostol (Arthrotec Ec 75 Mg-200 Mcg Tab) 1 Each Tablet. Diclofenac Sodium/Misoprostol (Arthrotec Ec 75 Mg-200 Mcg Tab) 1 Each Tablet.dr Clifton Twice A Day [facility] Docusate Sodium (Colace) 100 Mg Capsule Docusate Sodium (Col jabari) 100 Mg Capsule Yes As Needed [facility] Duloxetine Hcl (Cymbalta) 30 Mg Capsule. Duloxetine Hcl (Cymbalta) 30 Mg Capsule. Yes Daily [facility] Estradiol (Estrace) 42.5 Gm Cr Estradiol (Estrace) 42.5 Gm Cr Yes 2XWK [facility] Famotidine 40 Mg Tablet Famotidine 40 Mg Tablet Yes 40 Daily [facility] Gabapentin (Neurontin) 300 Mg Capsule Gabapentin (Neurontin) 300 Mg Capsule Yes 10DAILY [facility] Ipratropium [place] 0.2 Mg/1 Ml Solution Ipratropium B romide 0.2 Mg/1 Ml Solution Yes 2.5 Twice A Day [facility] Ipratropium/Albuterol Sulfate (Combivent Respimat Inha l [place]) 4 Gm Aer.w.adap Ipratropium/Albuterol Sulfate (Combivent Respimat Inhal [place]) 4 Gm Aer.w.adap Yes 4 As Needed [facility] Losartan Potassium 25 Mg Tablet Losartan Potassium 25 Mg Tablet Yes 50 Bedtime [facility] Montelukast Sodium 10 Mg Tablet Montelukast Sodium 10 Mg Tablet Yes 10 Bedtime [facility] Multivitamins-Min/Fa/Ginkgo (Women's 50+ Daily Formula Tab) 1 Each Tablet Multivitamins-Min/Fa/Ginkgo (Women's 50+ Daily Formula Tab) 1 Each Tablet Yes Daily [facility] Pantoprazole Sodium (Protonix) 40 Mg Tablet. Pantopr azole Sodium (Protonix) 40 Mg Tablet. Yes 40 Daily [facility] Tiotropium [place] (Spiriva) 18 Mcg Cap.w.dev Tiotropi um [place] (Spiriva) 18 Mcg Cap.w.dev Yes Twice A Day [facility] Ubidecarenone/Vitamin E Mixed (Coq10 Sg 100 Softgel) 1 Each Capsule Ubidecarenone/Vitamin E Mixed (Coq10 Sg 100 Softgel) 1 Each Capsule Yes Daily [facility] Vitamin B Complex 1 Each Tablet Vitamin B Complex 1 Each Tablet Yes Daily [facility] Amoxicillin 875 Mg Tablet, 875 Mg Oral Amoxicillin 875 Mg Tablet , 875 Mg Oral 2019-06-12 00:00:00 No 875 Daily [facility] Flex-A-Min , Flex-A-Min , 2019-06-12 00:00:00 No Twice A Day [facility] Lisdexamfetamine Dimesylate (Vyvanse) 50 Mg Capsule, L isdexamfetamine Dimesylate (Vyvanse) 50 Mg Capsule, 2019-06-12 00:00:00 No Daily [facility] Metronidazole 59 Ml Lotion, Metronidazole 59 Ml Lotion, 2019-06-12 00:00:00 No Twice A Day [facility] Mometasone Furoate (Asmanex) 220 Mcg Aer.pow.ba, Momet asone Furoate (Asmanex) 220 Mcg Aer.pow.ba, 2019-06-12 00:00:00 No Twic e A Day [facility] Trazodone Hcl 50 Mg Tablet, Trazodone Hcl 50 Mg Tablet, 2019-06-12 00:00:00 No 1/2-1HS [facility] Immunizations Ordered Immunization Name Filled Immunization Name [...] blood pressure 2019-10-21 10:08:00 133 mm[Hg] Souza Rastafarian Diastolic blood pressure 2019-10-21 10:08:00 84 mm[Hg] Harley Williamson Heart rate 2019-10-21 10:08:00 72 /min Harley Williamson Body temperature 2019-10-21 10:08:00 36.83 Mary Hous ton Rastafarian Body height 2019-10-21 10:08:00 172.7 cm Harley Williamson Body weight 2019-10-21 10:08:00 108.863 kg Harley Williamson BMI 2019-10-21 10:08:00 36.49 kg/m2 Souza [facility]astafarian Oxygen saturation in Arterial blood by Pulse oximetry 10-20 10:08:00 97 /min Souza Rastafarian Procedures Procedure Date / Time Performed Performing Clinician [facility] e ECG 12-LEAD 2019-10-21 10:11:05 Patria Corbett COVID BIOREF (NCOVB) 2019-09-18 13:33:00 Thomas Duke RESPIRATORY PATHOGEN PANEL 2019-07-29 14:50:00 Patria Corbett HC COMPLETE BLD COUNT W/AUTO DIFF 2019-07-29 14:50:00 Jaclyn Corbett XR CHEST 2 VW 2019-07-29 14:14:09 Patria Corbett POCT INFLUENZA A/B 2019-07-29 13:05:00 Patria Corbett Rast[facility]arian KNEE ARTHROSCOPY/SURGERY 2019-07-01 00:00:00 SUGAR GOLDSTEIN [facility] X-ray of chest, two views 2019-06-29 00:00:00 SUGAR GOLDSTEIN [facility] CT CHEST WO CONTRAST 2019-04-10 12:14:04 Aracely Kim on Rastafarian CBC WITH PLATELET AND DIFFERENTIAL 2019-04-08 10:06:00 Porfirio Corbett COMPREHENSIVE METABOLIC PANEL 2019-04-08 10:06:00 Patria Corbett LIPID PANEL 2019-04-08 10:06:00 Patria Corbett THYROID STIMULATING HORMONE 2019-04-08 10:06:00 Patria Corbett men Cross [facility] MRI jnt of lwr extre w/o dye 2019-03-25 00:00:00 SUGAR GOLDSTEIN [facility] Plan of Care Planned Activity Planned Date Details Comments Source Future Scheduled Test 2025-05-15 00:00:00 COLONOSCOPY SCREEN ING [code = COLONOSCOPY SCREENING] [facility] Future Scheduled Test 2021-06-18 00:00:00 BREAST CANCER SCRE ENING [code = BREAST CANCER SCREENING] [facility] Future Scheduled Test 2020-04-08 00:00:00 SHINGLES VACCINES (#1) [code = SHINGLES VACCINES (#1)] Postponed from 2003 (Insurance / Financial) [facility] Future Scheduled Test 2020-01-02 00:00:00 INFLUENZA VACCINE [code = INFLUENZA VACCINE] [facility] Future Scheduled Test 2018 00:00:00 65+ PNEUMOCOCCAL V ACCINE (2 of 2 - PPSV23) [code = 65+ PNEUMOCOCCAL VACCINE (2 of 2 - PPSV23)] [facility] Encounters Start Date/Time End Date/Time Encounter Type Admission Type Attendi [facility] Care Department Encounter ID Source 2019-10-21 00:00:00 2019-10-21 00:00:00 Outpatient PATRIA CORBETT [facility] [id number] Harley Williamson 2019-09-28 00:00:00 2019-09-28 00:00:00 Outpatient ILDEFONSO DUKE [facility] [id number] Harley Williamson 2019-09-18 00:00:00 2019-09-18 00:00:00 Outpatient ILDEFONSO DUKE [facility] [id number] Souza Rastafarian 2019-09-18 00:00:00 2019-09-18 00:00:00 Outpatient ILDEFONSO DUKE [facility] [id number] Souza Rastafarian 2019-08-13 13:10:00 2019-09-01 23:59:00 Discharged Recurring [facility] [id number] [facility] 2019-08-06 00:00:00 2019-08-06 00:00:00 Outpatient PATRIA CORBETT [facility] [id number] Souza Rastafarian 2019-07-29 00:00:00 2019-07-29 00:00:00 Outpatient PATRIA CORBETT [facility] [id number] Harley Williamson 2019-07-29 00:00:00 2019-07-29 00:00:00 Outpatient PATRIA CORBETT [facility] [id number] Harley Williamson 2019-07-29 00:00:00 2019-07-29 00:00:00 Outpatient PATRIA CORBTET [facility] [id number] Harley Williamson 2019-07-01 05:54:00 2019-07-01 05:54:00 Registered Surgical Day Car e 3 SUGAR GOLDSTEIN [facility] [id number] [facility] 2019-06-27 15:55:00 2019-06-27 16:30:00 Departed Emergency Room [facility] [id number] [facility] 2019-04-10 00:00:00 2019-04-10 00:00:00 Outpatient JIAN KIM [facility] [id number] [facility] 2019-03-25 10:16:00 2019-03-25 10:16:00 Registered Clinic 3 SUGAR GOLDSTEIN [facility] [id number] [facility] 2014-02-02 15:40:00 2014-02-02 15:40:00 Unknown MHIEALT [facility] [id number] [facility] 2014-02-02 09:40:00 2014-02-02 09:40:00 Outpatient [facility] [id number] eClinicalWo rks Results Test Description Test Time Test Comments Results Result Comments Source ECG 12 lead 2019-10-21 10:25:44 Test Item Ventricular rate (test code = 253) 70 Atrial rate (test code = 255) 70 MI interval (test code = 266) 166 QRSD [...] Comments COVID BioRef (NCOVB) (test code = 27977-8) Not Detected Not Detecte d Source Nasopharyngeal SwabTesting performed at [employer] [address] [place] [address] NOTE: Please consider re-collection of a new specimen, if clinically indicated. NOTE: The COVID-19 assay has been cleared by the U.S. Food and DrugAdministration under the Emergency Use Authorization (EUA). [facility] is designated as a high complexity laboratory by the ClinicalLaboratory Improvement Amendments of 1988(CLIA) and is qualified to performthis test. ASSAY INFORMATION: Real Time RT-PCR Cross MethodistRespiratory pathogen [id number] 22:53:47* Test Item Value Reference Range Interpretation Comments Respiratory pathogen panel (test code = 2148) Positive for Coronavirus HKU1 Negative for all other pathogens tested:Negative for AdenovirusNegative for Coronavirus BS84Cypzjdgf for Coronavirus 229ENegative for Coronavirus MV54Uaqmqlha for Human MetapneumovirusNegative for Rhinovirus/EnterovirusNegative for Influenza ANegative for Influenza A/O5Pivaghgr for Influenza A/F6Mbzsboau for Influenza A/H1-2009Negative for Influenza BNegative for [...] Not specified Lab Interpretation (test code = 21829-8) Abnormal [facility] MethodistCBC with platelet and kpwjimtxdidw6741-59-78 17:19:49* Test Item Value Reference Range Interpretation Comments WBC (test code = 66058-0) 13.32 4.50- 11.00 k/uL H RBC (test code = 12423-3) 3.82 m/uL 4.2-5.5 L HGB (test code = 718-7) 11.6 g/dL 12-16 L HCT (test code = 4544-3) 36.4 % 37-47 L MCV (test code = 787-2) 95.3 fL 82-100 MCH (test code = 785-6) 30.4 pg 27-34 MCHC (test code = 786-4) 31.9 g/dL 31-37 RDW - SD (test code = 83549-3) 50.5 fL 37-55 MPV (test code = 20365-5) 11.7 fL 8.8-13.2 Platelet count (test code = 57603-9) 193 150- 400 k/uL Nucleated RBC (test code = 82567-8) 0.00 /100 WBC Neutrophils (test code = 92862-9) 72.3 % 39-69 H Lymphocytes (test code = 76759-3) 14.8 % 25-45 L Monocytes (test code = 02227-3) 12.2 % 0-10 H Eosinophils (test code = 54592-1) 0.0 % 0-5 Basophils (test code = 82357-0) 0.1 % 0-1 Lab Interpretation (test code = 93977-5) Abnormal Cross MethodistXR Chest 2 [id number] 15:57:15Hm Interface, Radiology Results Incoming - 07/29/2019 [...] with bridging osteophytosis. Upper abdominal structures are unremarkable.[facility]-[id number] and approved by radiology r esident/fellow: Tisha Mane, Michael Yoo, personally reviewed the imag es and resident's/fellow's findings and agree with the final report.[facility] Influenza A/[id number] 13:05:00* Test Item Value Reference Range Interpretation Comments Rapid Influenza A Ag (test code = 37508-1) Negative Rapid Influenza B Ag (test code = 14383-0) Negative [facility] 2 [id number] 13:11:00 [place] [address] Patient Name: RONEN CURIEL MR #: [id number] : 1955 Age/Sex: 64/F Req #: [id number] Adm Physician: Ordered by: SUGAR GOLDSTEIN MD Report #: [id number] Location: OR Room/Bed: Procedure: [id number] DX /CHEST 2 VIEWS Exam Date: 06/29/19 [...] COPY TO: SUGAR GOLDSTEIN MD White Blood [id number] 12:59:00* Test Item Value Reference Range Interpretation Comments White Blood Count (test code = 6690-2) 8.57 4.8-10.8 [facility] [id number] 12:59:00* Test Item Value Reference Range Interpretation Comments Red Blood Count (test code = 789-8) 3.99 3.6-5.1 [facility]emoglobin2020-01-27 12:59:00* Test Item Value Reference Range Interpretation Comments Hemoglobin (test code = 91038-8) 12.2 12.0-16.0 [facility]ematocrit2020-01-27 12:59:00* Test Item Value Reference Range Interpretation Comments Hematocrit (test code = 4544-3) 38.0 34.2-44.1 [facility]landMean Corpuscular Sikfto3844-51-88 12:59:00* Test Item Value Reference Range Interpretation Comments Mean Corpuscular Volume (test code = 787-2) 95.2 81-99 [facility] Corpuscular Dqptervoqu1686-88-48 12:59:00* Test Item Value Reference Range Interpretation Comments Mean Corpuscular Hemoglobin (test code = 785-6) 30.6 28-32 [facility] Corpuscular Hemoglobin Concent 2019-06-29 12:59:00* Test Item Value Reference Range Interpretation Comments Mean Corpuscular Hemoglobin Concent (test code = 786-4) 32.1 31-35 [facility]landRed Cell Distribution [id number] 12:59:00* Test Item Value Reference Range Interpretation Comments Red Cell Distribution Width (test code = 05715-8) 14.5 11.7 -14.4 H [facility]landPlatelet [id number] 12:59:00* Test Item Value Reference Range Interpretation Comments Platelet Count (test code = 777-3) 219 140-360 [facility]landNeutrophils (%) (Auto)2019-06-29 12:59:00 * Test Item Value Reference Range Interpretation Comments Neutrophils (%) (Auto) (test code = 19993-4) 60.7 38.7-80.0 [facility]landLymphocytes (%) (Auto)2019-06-29 12:59:00 * Test Item Value Reference Range Interpretation Comments Lymphocytes (%) (Auto) (test code = 736-9) 29.5 18.0-39.1 [facility]land[facility]ocytes (%) (Auto)2019-06-29 12:59:00* Test Item Value Reference Range Interpretation Comments Monocytes (%) (Auto) (test code = 5905-5) 8.8 4.4-11.3 [facility]osinophils (%) (Auto)2019-06-29 12:59:00 * Test Item Value Reference Range Interpretation Comments Eosinophils (%) (Auto) (test code = 713-8) 0.0 0.0-6.0 [facility]ophils (%) (Auto)2019-06-29 12:59:00* Test Item Value Reference Range Interpretation Comments Basophils (%) (Auto) (test code = 706-2) 0.2 0.0-1.0 [facility]landIM GRANULOCYTES %2019-06-29 12:59:00* Test Item Value Reference Range Interpretation Comments IM GRANULOCYTES % (test code = IM GRANULOCYTES %) 0.8 0.0- 1.0 [facility]landNeutrophils # (Auto)2019-06-29 12:59:00* Test Item Value Reference Range Interpretation Comments Neutrophils # (Auto) (test code = 751-8) 5.2 2.1-6.9 [facility]landLymphocytes # (Auto)2019-06-29 12:59:00* Test Item Value Reference Range Interpretation Comments Lymphocytes # (Auto) (test code = 50261-6) 2.5 1.0-3.2 [facility]landMonocytes # (Auto)2019-06-29 12:59:00* Test Item Value Reference Range Interpretation Comments Monocytes # (Auto) (test code = 742-7) 0.8 0.2-0.8 [facility]osinophils # (Auto)2019-06-29 12:59:00* Test Item Value Reference Range Interpretation Comments Eosinophils # (Auto) (test code = 711-2) 0.0 0.0-0.4 [facility]ophils # (Auto)2019-06-29 12:59:00* Test Item Value Reference Range Interpretation Comments Basophils # (Auto) (test code = 704-7) 0.0 0.0-0.1 [facility]landAbsolute Immature Granulocyte (auto 2019-06-29 12:59:00* Test Item Value Reference Range Interpretation Comments Absolute Immature Granulocyte (auto (tamera t code = Absolute Immature Granulocyte (auto) 0.07 0-0.1 [facility]IE [facility] DIGITAL 2019-06-17 14:28:47 - SCR MAMM BILATERAL DONNIE CAD DIGITALBILATERAL DIGITAL SCREENING MAMMOGRAM 3D/2D WITH CAD: 06/13/2019CLINICAL: Asymptomatic. Digital breast tomosynthesis was performed in addition to routine CC and MLO views. Current mammographic images were evaluated by either a Hungrio M-Vu or a [employer] ImageChecker CAD (computer aided detection system). Comparison is made to exams dated 05/13/2018 mammogram, 05/08/2017 mammogram, and 05/07/2016 mammogram - [facility]-. There are scattered fibroglandular tissues in both breasts. There is a biopsy clip in the right breast. No suspicious mass, architectural distortion, malignant type calcification, or lymph node abnormality detected. Breast architecture is stable compared to prior exams.IMPRESSION: BENIGNThere is no mammographic evidence of malignancy. Resume annual screening mammography in one year. Eliza perry/rachel:06/17/2019 14:28:47 Egg Smeller: Philly MATTHEWS, [facility]-FWletter sent: BIRADS 1-2 Normal Mammogram BI-RADS: 2 BenignCT Chest Wo [id number] 12:32:32Hm Interface, Radiology Results 04/10/2019 12:35 PM [...] year recommended for 2 year stability evaluat ion.[id number] [facility] MethodistComprehensive metabolic [id number] 02:42:00* Test Item Value Reference Range Interpretation Comments Glucose (test code = 2345-7) 82 mg/dL 65-99 Fasting reference interval BUN (test code = 3094-0) 14 mg/dL 7-25 Creatinine (test code = 2160-0) 0.95 mg/dL 0.5-0.99 For patients >49 years of age, the reference limitfor Creatinine is approximately 13% higher for peopleidentified as -English. EGFR Non-Afr. English (test code = 2775) 63 > OR = 60 mL /min/1.73m2 EGFR (test code = 59063-4) 73 > OR = 60 mL/min/1.73m2 BUN/creatinine ratio (test code = 3097-3) NOT APPLICABLE 6- 22 (venu c) Sodium (test code = 2951-2) 142 mmol/L 135-146 Potassium (test code = 2823-3) 4.8 mmol/L 3.5-5.3 Chloride (test code = 2074-0) 108 mmol/L 98-110 CO2 (test code = 2027-) 25 mmol/L 20-32 Calcium (test code = 52654-0) 9.7 mg/dL 8.6-10.4 Protein (test code = 2885-2) 6.4 g/dL 6.1-8.1 Albumin, S (test code = 1751-7) 4.0 g/dL 3.6-5.1 Globulin, total (test code = 24533-2) 2.4 1.9- 3.7 g/dL (c alc) Albumin/globulin [...] Organization Info rmation: Site ID: RGA Name: [facility] Address: [address] [place] [id number] Director: Hermes Souza MethodistLipid [id number] 02:42:00* Test Item Value Reference Range Interpretation Comments Cholesterol, total (test code = 2093-3) 167 mg/dL <200 HDL cholesterol (test code = 2084-9) 57 mg/dL >50 Triglycerides (test code = 2571-8) 136 mg/dL <150 LDL cholesterol calculated (test code = 55977-4) 87 mg/dL (calc) Reference range: <100 Desirable range <100 mg/dL for primary prevention; <70 mg/dL for patients with CHD or diabetic patients with > or = 2 CHD risk factors. LDL-C is now calculated using the Garland-Black calculation, which is a validated novel method providing better accuracy than the Friedewald equation in the estimation of LDL-C. Garland SS et al. EL. 2013;310(19): 9950-6629 (http:/ /education.Mersimo.Exchangery/faq/ARM846) Cholesterol/HDL ratio (test code = 9830-1) 2.9 <5.0 (calc) Non-HDL cholesterol (test code = 95722-8) 110 <130 mg/dL ( calc) For patients with diabetes plus 1 major ASCVD risk factor, treating to a non-HDL-C goal of <100 mg/dL (LDL-C of <70 mg/dL) is considered a therapeutic option. OYAV (test code = YOAV) FASTING:YESFASTING: YES RAC (test code = RAC) Performing Organization Info rmation: Site ID: RGA Name: [facility] Address: [address] [place] [address] Director: Hermes Luna Cross MethodistThyroid stimulating [id number] 02:42:00* Test Item Value Reference Range Interpretation Comments TSH (test code = 3016-3) 1.64 0.40- 4.50 mIU/L YOAV (test code = YOAV) FASTING:YESFASTING: YES RAC (test code = RAC) Performing Organization Info rmation: Site ID: RGA Name: [facility] Address: [address] [place] [address] Director: Hermes Luna Cross MethodistMRI KNEE LEFT [id number] 11:40:00 [place] [address] Patient Name: RONEN CURIEL MR #: [id number] : 1955 Age/Sex: 63/F Req #: [id number] Adm Physician: Ordered by: SUGAR GOLDSTEIN MD Report #: [id number] Location: [facility] Room/Bed: Procedure: [id number] MR I/MRI KNEE LEFT WO Exam Date: [...] 11:50 AM Dictated By: MIRIAM GUPTA DO [facility] Signed By: MIRIAM GUPTA DO on 03/25/19 1150 Transcribed By: MARY on 03/25 1150 COPY TO: SUGAR GOLDSTEIN MD [facility] MAMM BILATERAL DONNIE CAD [id number] 08:37:53 - SCR MAMM BILATERAL DONNIE CAD DIGITALBILATERAL DIGITAL SCREENING MAMMOGRAM 3D/2D WITH CAD: 05/13/2018CLINICAL: Asymptomatic. Digital breast tomosynthesis was performed in addition to routine CC and MLO views. Current mammographic images were evaluated by either a Hungrio M-Vu or a Ubookoo ImageChecker CAD (computer aided detection system). Comparison is made to exams dated 05/08/2017 mammogram, 05/07/2016 mammogram, and 05/04/2015 mammogram - [facility]. There are scattered fibroglandular tissues [...] annual screening mammography in one year. The [employer] recommends annual screening breast MRI in addition to mammography for women with a lifetime risk of breast cancer greater than 20%.Brant Jacobson M.D. ss/:05/14/2018 08:37:53 Egg Smeller: Alexus MATTHEWS, [facility] sent: BIRADS 1-2 Normal Mammogram BI-RADS: 2 Benign
--- OUTSIDE RECORDS SUMMARY | 2019-10-31 03:06 | XMS REPORT | Continuity of Care Document ---
Author Author [facility] Organization [facility] Address Unknown Phone Unavailable Care Team Providers Care [employer] Consultant Name Role Phone Apptio Information [employer] Unavailable Un available Problems Problem Status Onset Date Classification Date Reported Comments Source Exostosis Active Problem 05/11/2014 [facility] Ingrown toenail Active Problem 05/11/2014 [facility] Medications No Data Provided for [...] Provider ADM Date DC Date Status Source [facility] Unknown [id number] 02/03/20 14 02/02/2014 [facility] Procedures No Data Provided for [...] Occupation: . disabled Apr 20, 2014 04/20/2014 [facility] Family History Value Date S ource QualifierDescriptionCommentDate Reported Father heart disease, cancer, hypertension Apr 20, 2014 05/11/2014 [facility] Advance Directives No Data Provided for This Section Functional Status No Data Provided for This Section
[2019-10-31 06:42] LABS: BASOPHILS % 0.2 % (0.0-1.0); EOSINOPHILS % 0.1 % (0.0-6.0); HEMATOCRIT 33.3 % (34.2-44.1); HEMOGLOBIN 10.7 g/dL (12.0-16.0); LYMPHOCYTES # (AUTO) 2.1 (1.0-3.2); LYMPHOCYTES % 16.7 % (18.0-39.1); MEAN CORPUSCULAR HEMOGLOBIN 30.5 pg (28-32); MEAN CORPUSCULAR HGB CONC 32.1 g/dL (31-35); MEAN CORPUSCULAR VOLUME 94.9 fL (81-99); MONOCYTES # (AUTO) 1.5 (0.2-0.8); MONOCYTES % 12.1 % (4.4-11.3); NEUTROPHILS # (AUTO) 8.9 (2.1-6.9); NEUTROPHILS % 70.3 % (38.7-80.0); PLATELET COUNT 231 x10e3/uL (140-360); RED BLOOD COUNT 3.51 x10e6/uL (3.6-5.1); RED CELL DISTRIBUTION WIDTH 14.7 % (11.7-14.4)
[2019-10-31] MEDS: MORPHINE SULFATE 2 MG/ML SYR 1ML IV PRN ×2 (06:54→08:58)
[2019-10-31 07:01] LABS: ALBUMIN 3.8 g/dL (3.5-5.0); ALBUMIN/GLOBULIN RATIO 1.2 (0.8-2.0); ANION GAP 13.4 mmol/L (8-16); CALCIUM 9.1 mg/dL (8.4-10.2); POTASSIUM 4.4 mmol/L (3.5-5.1)
--- NOTE | 2019-10-31 12:03 | NUR ---
Called Pat Duarte[facility] [employer] and advised her that patient was requesting some ibuprofen in between the morphine doses. Pat states that she would place order for ibuprofen for patients comfort. client also advised that she wanted to see Dr. Veronica, I advised that Pat would be by to see her and then they would decide whether Dr. Veronica would need to be consulted.
[2019-10-31] MEDS: IBUPROFEN 600 MG TAB PO PRN ×4 (12:07→23:38)
[2019-10-31] MEDS ORDERED: HYDRALAZINE HCL 20 MG/ML VIAL IV PRN (13:45)
[2019-10-31] MEDS ORDERED: ACETAMINOPHEN 325 MG TAB PO PRN (13:45)
--- NOTE | 2019-10-31 14:32 | NUR ---
The pt. arrived from the ER via stretcher with diagnosis of Post op foot pain. She is awake,alert and oriented x4. She reports pain in the right foot 1o/10. She was advised that her med will be given as soon as it crosses to my pyxis.
[2019-10-31 14:35] VITALS: BP 129/71
[2019-10-31] MEDS: GABAPENTIN 300 MG CAP PO SCH ×2 (15:30→21:14)
[2019-10-31 15:40] VITALS: BP 165/92
--- NOTE | 2019-10-31 16:40 | NUR ---
The pt's morphine order has been dc'd and a call was placed to Pat for pain med. The pt. is to be given flexeril and if pain is not maintained at a tolerable level then the pt. can have norco as ordered for home script.
[2019-10-31] MEDS ORDERED: HYDROCODONE/APAP 10MG-325MG TAB PO PRN (16:45)
[2019-10-31] MEDS: CYCLOBENZAPRINE HCL 10 MG TAB PO PRN ×2 (16:50→23:38)
--- NOTE | 2019-10-31 19:15 | NUR ---
Patient visited in room during nursing rounds. Patient alert and oriented x3. Right foot s/p surgery on 10/29 and is wrapped with jabari bandage. Dressing with old spots of blood but dry at this time. Whole right leg elevated with pillows. Pt states swelling has gone down but still having intermittent pain on right foot. Will medicate pt accordingly. Call finnegan within reach. Will monitor pt closely.
[2019-10-31 20:33] VITALS: BP 112/63
--- NOTE | 2019-10-31 20:39 | NUR ---
Called and spoke with answering service (Axel) for Dr. Veronica (Blow Mold Technician) to notify of routine consult order placed by Pat Kothari ([employer]). Reason for consult is right foot pain s/p surgery. Information placed on consult book for reference.
--- NOTE | 2019-10-31 20:44 | NUR ---
Spoke with Saray Sierra ([place] for Dr. Duarte) to inform pt requested for CPAP to use tonight. Pt states she has history of sleep apnea. Order obtained and RT informed to bring CPAP machine in room.
[2019-10-31 21:00] VITALS: BP 112/63
[2019-10-31] MEDS ORDERED: ATORVASTATIN 20 MG TAB PO SCH (21:00)
[2019-10-31] MEDS ORDERED: CITALOPRAM HYDROBROMIDE 20 MG TAB PO SCH (21:00)
[2019-10-31] MEDS ORDERED: LOSARTAN POTASSIUM 25 MG TAB PO SCH (21:00)
[2019-10-31] MEDS: HYDROCODONE/APAP 10MG-325MG TAB PO PRN (21:14)
[2019-10-31] MEDS: BUDESONIDE/FORMOTEROL 160/4.5MCG INHALER INH SCH (21:15)
[2019-11-01] VITALS: BP 107/57
[2019-11-01 04:00] VITALS: BP 104/54
[2019-11-01 05:48] LABS: BASOPHILS % 0.1 % (0.0-1.0); HEMATOCRIT 31.5 % (34.2-44.1); HEMOGLOBIN 9.9 g/dL (12.0-16.0); LYMPHOCYTES # (AUTO) 2.6 (1.0-3.2); LYMPHOCYTES % 28.7 % (18.0-39.1); MEAN CORPUSCULAR HEMOGLOBIN 30.7 pg (28-32); MEAN CORPUSCULAR HGB CONC 31.4 g/dL (31-35); MEAN CORPUSCULAR VOLUME 97.5 fL (81-99); MONOCYTES # (AUTO) 1.2 (0.2-0.8); MONOCYTES % 13.1 % (4.4-11.3); NEUTROPHILS # (AUTO) 5.1 (2.1-6.9); NEUTROPHILS % 57.8 % (38.7-80.0); PLATELET COUNT 187 x10e3/uL (140-360); RED BLOOD COUNT 3.23 x10e6/uL (3.6-5.1); RED CELL DISTRIBUTION WIDTH 14.8 % (11.7-14.4)
[2019-11-01 06:35] LABS: ALANINE AMINOTRANSFERASE 28 IU/L (0-55); ALBUMIN 3.4 g/dL (3.5-5.0); ALBUMIN/GLOBULIN RATIO 1.2 (0.8-2.0); ALKALINE PHOSPHATASE 63 IU/L (40-150); ANION GAP 12.8 mmol/L (8-16); BLOOD UREA NITROGEN 15 mg/dL (7-26); BUN/CREATININE RATIO 17 (6-25); CALCIUM 8.6 mg/dL (8.4-10.2); CARBON DIOXIDE 25 mmol/L (22-29); CHLORIDE 106 mmol/L (98-107); CREATININE, SERUM 0.87 mg/dL (0.57-1.11); EST GLOMERULAR FILTRATION RATE > 60 ML/MIN (60-); GLUCOSE 104 mg/dL (74-118); POTASSIUM 3.8 mmol/L (3.5-5.1); SODIUM 140 mmol/L (136-145)
--- NOTE | 2019-11-01 07:00 | NUR ---
Received bedside shift report from off going nurse. Patient in stable condition, no s/s of distress noted. CPAP applied. Bed in lowest position and locked. Call light within reach.
[2019-11-01] MEDS: BUDESONIDE/FORMOTEROL 160/4.5MCG INHALER INH SCH (07:22)
[2019-11-01 08:00] VITALS: BP 124/60
[2019-11-01 08:07] VITALS: BP 124/60
[2019-11-01] MEDS: HYDROCODONE/APAP 10MG-325MG TAB PO PRN (08:56)
[2019-11-01] MEDS: GABAPENTIN 300 MG CAP PO SCH (08:56)
[2019-11-01] MEDS ORDERED: TIOTROPIUM 18 MCG INH POWDER INH SCH (09:00)
[2019-11-01] MEDS ORDERED: DULOXETINE HCL 30 MG DELAYED RELEASE PO SCH (09:00)
[2019-11-01] MEDS ORDERED: BISACODYL 5 MG TAB EC PO NR (09:15)
[2019-11-01] MEDS ORDERED: Ibuprofen PO (10:02)
[2019-11-01] MEDS ORDERED: CYCLOBENZAPRINE10 MG PO (10:02)
[2019-11-01] MEDS: CYCLOBENZAPRINE HCL 10 MG TAB PO PRN (11:15)
[2019-11-01] MEDS: IBUPROFEN 600 MG TAB PO PRN (11:15)
[2019-11-01 12:03] VITALS: BP 133/64
--- NOTE | 2019-11-01 12:34 | NUR ---
Patient discharged home- Patient off the unit @ 1230 via wheelchair accompanied by RN to the lobby. Patient in stable condition, No s/s of distress noted. No pain voiced. IV access removed with tip intact. All personal items taken with the patient. Discharge teaching and instructions given to the patient. Patient verbalized understanding. Prescriptions and discharge paper work given to the patient.
--- NOTE | 2019-11-02 03:55 | Discharge Summary ---
ADMISSION DIAGNOSES: 1. Right foot pain. 2. Obesity with a BMI of 36.9. 3. Hypertension. 4. Chronic obstructive pulmonary disease. 5. Anxiety. 6. Depression. DISCHARGE DIAGNOSES: 1. Right foot pain. 2. Obesity with a BMI of 36.9. 3. Hypertension. 4. Chronic obstructive pulmonary disease. 5. Anxiety. 6. Depression. HISTORY: Hypertension, COPD, anxiety, depression, and hyperlipidemia. SURGICAL HISTORY: Bladder prolapse repair, hysterectomy, TMA, tubal ligation, right ankle tibial tendon repair with navicular fusion and left knee surgery. FAMILY HISTORY: The patient's sisters had cancer and the patient's father had stroke. SOCIAL HISTORY: Noncontributory. HOSPITAL COURSE: A 64-year-old female, admits with complaints of right foot pain, status post right ankle tibial tendon repair with navicular fusion performed yesterday by Dr. Veronica. She completed the procedure around 8 p.m. and came back to the ER around 10 p.m. because the pain was so bad. She was prescribed [place] and only took one dose prior to admission. On admission, the foot is still in the surgical dressing. She was given a couple of doses of morphine, which was then discontinued and her [place], and a new prescription for Flexeril was started. Dr. Veronica was consulted. He called the following day, but the patient's pain was controlled and she is ready to discharge. She already has a followup appointment with him in 2 days, so she would like to just go home and see him in [address] Veronica understands and agrees the plan. The patient and the patient's daughter understand instructions and agrees to plan. She was given new prescriptions for Flexeril and Motrin. At the time of discharge, vital signs stable and the patient afebrile. Dictated by Pat Kothari NP MD DANGELO Maxwell/MODL /[id number]
== END 2019-11-01 12:32 | disposition home or self-care (01) ==
LOC: ER 23:01 → ERHOLD 10-31 03:03 → MED/SURG2 10-31 14:36
PROVIDERS: ADMIT Internal Medicine; ATTEND Internal Medicine
DX: G89.18 Other acute postprocedural pain (principal); I10 Essential (primary) hypertension; J44.9 Chronic obstructive pulmonary disease, unspecified; F41.9 Anxiety disorder, unspecified; F32.9 Major depressive disorder, single episode, unspecified; E78.5 Hyperlipidemia, unspecified; E66.9 Obesity, unspecified; Z68.36 Body mass index [BMI] 36.0-36.9, adult
CPT/HCPCS: 36415 ×2; 80053 ×2; 85025 ×2; 94660 ×2; 94664; 99284; G0378 ×2; J2270 ×2; J2405

== ENCOUNTER → 2019-10-30 | Day surgery (SDC) | payer MEDICARE, BC, OTHER ==
[2019-10-27 13:12] LABS: BASOPHILS % 0.2 % (0.0-1.0); HEMATOCRIT 38.4 % (34.2-44.1); HEMOGLOBIN 12.3 g/dL (12.0-16.0); LYMPHOCYTES # (AUTO) 2.4 (1.0-3.2); LYMPHOCYTES % 36.8 % (18.0-39.1); MEAN CORPUSCULAR HEMOGLOBIN 30.1 pg (28-32); MEAN CORPUSCULAR VOLUME 94.1 fL (81-99); MONOCYTES # (AUTO) 0.6 (0.2-0.8); MONOCYTES % 9.1 % (4.4-11.3); NEUTROPHILS # (AUTO) 3.5 (2.1-6.9); NEUTROPHILS % 53.1 % (38.7-80.0); PLATELET COUNT 230 x10e3/uL (140-360); RED BLOOD COUNT 4.08 x10e6/uL (3.6-5.1); RED CELL DISTRIBUTION WIDTH 14.7 % (11.7-14.4)
[2019-10-27 13:33] LABS: ANION GAP 13.4 mmol/L (8-16); CALCIUM 9.5 mg/dL (8.4-10.2); CREATININE, SERUM 0.99 mg/dL (0.57-1.11); POTASSIUM 4.4 mmol/L (3.5-5.1)
[~2019-10-30] MED LIST changes: +ARTHROTEC PO; +BUPIVACAINE HCL 0.5% INJ 30 ML VIAL INJ ONE; +CEFAZOLIN SOD 1 GM/NS 50ML 100 ML IV ONE; -COMBIVENT RESPIM4 GM IH; +COMBIVENT RESPIM4 GM NEB; +CYCLOBENZAPRINE10 MG PO; +DEXAMETHASONE SOD PHOS INJ 4 MG/ML VIAL ONE; +ETOMIDATE 2 MG/ML 10 ML INJ IV ONE; -FAMOTIDINE40 MG PEG; +FAMOTIDINE40 MG PO; +FASENRA30 MG/1 ML IM; -FASENRA30 MG/1 ML SC; +FENTANYL CITRATE/PF 100MCG/2 ML INJ ONE; +HYDROCODONE/APAP 5MG-325MG TAB ONE; +HYDROMORPHONE 1MG/1ML INJ ONE; +IPRATROPIU0.2 MG/1 M; -IPRATROPIU0.2 MG/1 M NEB; +Ibuprofen PO; +KETOROLAC TROMETHAMINE 30 MG/ML VIAL ONE; +LABETALOL HCL 20 ML ONE; +LIDOCAINE HCL 2% LOCAL INJ 5 ML SDV VIAL INJ ONE; +NEOSTIGMINE 1 MG/ML 10ML VIAL ONE; -NEURONTIN300 MG; +NEURONTIN300 MG PO; +ONDANSETRON HCL INJ 2MG/ML 2ML 2 MG/ML VIAL ONE; +SEVOFLURANE INHAL SOLN 250 ML PEN BTL ONE; -SPIRIVA18 MCG; +SPIRIVA18 MCG INH
[2019-10-30 19:25] VITALS: BP 136/79
--- NOTE | 2019-11-04 00:47 | Operative Report ---
DATE OF PROCEDURE: 10/30/2019 SURGEON: Drake Veronica DPM ROOM NUMBER: [facility]. PREOPERATIVE DIAGNOSES: 1. Ruptured posterior tibial tendon, right foot. 2. Ankle joint synovitis, right foot. 3. Talonavicular joint arthritis, right foot. 4. 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 POSTOPERATIVE DIAGNOSES: 1. Ruptured posterior tibial tendon, right foot. 2. Ankle joint synovitis, right foot. 3. Talonavicular joint arthritis, right foot. 4. 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 TITLE OF THE OPERATIONS: 1. Posterior tibial tendon repair, right foot. 2. Ankle joint arthroscopy, right foot. 3. Talonavicular joint fusion, right foot. 4. Medial cuneiform joint fusion, right foot to the navicular. PROCEDURE IN DETAIL: The patient was taken to the operating room in a mildly sedated state and placed on the operating table in supine position. Following induction of general anesthetic, the right lower extremity was elevated to 60 degrees to exsanguinate before inflating the pneumatic thigh tourniquet at 350 mmHg hemostasis. The right lower extremity was placed on the operating table prior to performing following procedure. Procedure #1: Ankle joint arthroscopy of the right foot. Two stab incisions were made at the anterior aspect of the ankle, both medial and lateral gutters and both the camera and abrader were advanced utilizing direct visualization via operating scope. The abrader was used to clean the dystrophic synovitis present within the ankle joint itself. There were multiple areas of hypertrophic synovium and the cartilaginous surface was noted to be adequate. There was a fair amount of arthritis as well. OATS procedure was not performed. The area was irrigated with copious amounts of sterile saline solution and deep closure and skin closure was 4-0 nylon. Attention was then directed to the posterior tibial fossa, where a curvilinear incision was made overlying the posterior tibial tendon. PT tendon was noted to be ruptured posterior to the medial malleolus. The two ends were found and were approximately 2 cm . Bone was removed both from the talonavicular joint and the navicular medial cuneiform joint, both of which were fused to create a medial column stability utilizing a combination of screws, plates, and necessary pinning. This having been accomplished and with the foot in inversion, the PT tendon was repaired and augmented with human tissue allograft. The area was irrigated with copious amounts of sterile saline solution. Released the pneumatic thigh tourniquet and allowed for electrocautery of all superficial bleeders. Neurovascular structures had been retracted from harm's way throughout the course of the case and were noted to be intact. The area was then closed with a combination of 3-0 Vicryl, 4-0 Vicryl, 4-0 nylon, and adam. The appropriate mildly compressive dressings were applied and posterior splint was applied. The patient left the operating room, vital signs stable, in apparent satisfactory condition, having tolerated both the anesthetic and procedure very well. REJI Lynn/FREDDY /[id number]
== END | disposition home or self-care (01) ==
LOC: OR 10:15
PROVIDERS: ATTEND Podiatrist Foot Surgery
DX: S96.011A Strain of muscle and tendon of long flexor muscle of toe at ankle and foot level, right foot, initial encounter (principal); M21.41 Flat foot [pes planus] (acquired), right foot; M19.071 Primary osteoarthritis, right ankle and foot; M65.871 Other synovitis and tenosynovitis, right ankle and foot; G47.33 Obstructive sleep apnea (adult) (pediatric); K21.9 Gastro-esophageal reflux disease without esophagitis; J44.9 Chronic obstructive pulmonary disease, unspecified; X58.XXXA Exposure to other specified factors, initial encounter; Z01.810 Encounter for preprocedural cardiovascular examination; Z01.812 Encounter for preprocedural laboratory examination; Z11.59 Encounter for screening for other viral diseases
CPT/HCPCS: 28200; 28735; 29895; 36415; 80048; 85025; 87635; 93005; C1713 ×2; J0690; J1170; J2405; J3010; J3490; J1100; J1885; J2001; J2710